=== PATIENT | female | born 1940 | race Caucasian/White ===

== ENCOUNTER 2020-07-12 11:54 | Outpatient (CLI) | payer OTHER, SELFPAY ==
[2020-07-12 12:16] LABS: Basophils Percent Auto 0.4 % (0.2-1.2); Eosinophils Percent Auto 0.6 % (0-4.4); Hemoglobin 15.2 g/dL (12.0-15.0); Immature Granulocyte Absolute 0.01 K/mm3 (0.00-0.031); Immature Granulocyte Percent A 0.2 % (0-0.5); Lymphocytes Absolute Auto 0.94 K/mm3 (0.9-3.2); Lymphocytes Percent Auto 20.2 % (18.3-44.2); Mean Corpuscular HGB Conc 33.8 g/dl (32-36); Mean Corpuscular Hemoglobin 30.3 pg (26-34); Mean Corpuscular Volume 89.6 fl (80-100); Mean Platelet Volume 9.9 fl (7.4-10.4); Monocytes Absolute Auto 0.3 K/mm3 (0.1-0.6); Monocytes Percent Auto 5.6 % (2.6-8.5); Neutrophils Absolute Auto 3.4 K/mm3 (1.3-6.7); Platelet Count Result 164 k/mm3 (150-375); Red Blood Count 5.02 M/mm3 (4.2-5.4); Red Cell Distribution Width 11.9 % (11.5-14.5); White Blood Count 4.7 K/mm3 (4.5-10.0)
[2020-07-12 12:29] LABS: Alanine Aminotransferase 18 U/L (4-35); Albumin Level 4.2 g/dL (3.5-5.1); Alkaline Phosphatase 47 U/L (38-126); Anion Gap 11 mmol/L (8-16); Aspartate Amino Transferase 29 U/L (14-36); Bilirubin,Total 0.6 mg/dL (0.2-1.3); Blood Urea Nitrogen 16 mg/dL (7-17); Calcium 9.2 mg/dL (8.4-10.2); Carbon Dioxide 22 mmol/L (22-30); Chloride 106 mmol/L (98-107); Estimated Glomerular Filt Rate > 60; Glucose 99 mg/dL (65-105); Potassium 3.9 mmol/L (3.4-5.0); Sodium 139 mmol/L (137-145)
[2020-07-12 13:16] LABS: Creatinine Urine 66.4 mg/dL
[2020-07-12 13:21] LABS: MALB Creatinine Ratio 9.6 mg/g (0-30); Microalbumin Urine Random 6.4 mg/L (0-16.7)
[2020-07-12 13:29] LABS: Vitamin D 25 Hydroxy 34.7 ng/mL
== END 2020-07-12 11:55 | disposition home or self-care (01) ==
PROVIDERS: PCP Internal Medicine; Visit Provider Internal Medicine
DX: R60.0 Localized edema (principal); E55.9 Vitamin D deficiency, unspecified
CPT/HCPCS: 36415; 80053; 82043; 82306; 84443; 85025

== ENCOUNTER 2021-01-16 14:28 | Emergency (ER) | payer OTHER, SELFPAY ==
--- NOTE | ~2021-01-16 | XR_ITS ---
XR shoulder RT min 2V DATE: 01/16/2021 15:31 INDICATION: Right shoulder pain following a fall today TECHNIQUE: 3 views COMPARISON: None FINDINGS: There is a comminuted fracture of the proximal right humerus including anteriorly displaced transverse surgical neck fracture, fracture through the greater tuberosity. Normal alignment at the clavicular joint. There is widening of the right glenohumeral joint space. Diffuse osteopenia. IMPRESSION: Comminuted fracture of the proximal right humerus including surgical neck and greater tub erosity fractures Reviewed, dictated and finalized at location A. USION SUPERVISOR IMPRESSION: Comminuted fracture of the proximal right humerus including surgica l neck and greater tuberosity fractures
--- NOTE | ~2021-01-16 | XR_ITS ---
XR knee LT 3V DATE: 01/16/2021 18:12 INDICATION: Fall today. Left anterior knee pain. TECHNIQUE: 3 views including crosstable lateral COMPARISON: None FINDINGS: There is tricompartment osteoarthritis with periarticular spurring. Medial and lateral comp artment joint spaces are relatively preserved. No fracture or dislocation or joint effusion. No periosteal reaction or bone destruction. No radiopaq ue intra-articular loose body or chondrocalcinosis. IMPRESSION: Tricompartment osteoarthritic arthritis No fracture or dislocation or joint effusion is detected Reviewed, dictated and finalized at location A. ERBOARD SETTER
--- NOTE | ~2021-01-16 | XR_ITS ---
XR finger 1st LT min 2V DATE: 01/16/2021 18:09 INDICATION: Fall. Pain and abrasion of distal phalanx of first digit TECHNIQUE: 3 views COMPARISON: None FINDINGS: There is osteopenia. There is prominent osteoarthritic change at the triscaphe joint. There is osteoarthritic change at the first metacarpophalangeal joint. No fracture or dislocation, periosteal reaction or bone destruction of the left first digit. No radio paque soft tissue foreign body or subcutaneous emphysema of the first digit. IMPRESSION: Osteopenia Osteoarthritis particularly at the triscaphe joint, also the first metacarpophalangeal joint No fracture or dislocation of the left first digit Reviewed, dictated and finalized at location A. ASOUND SPEC IMPRESSION: Osteopenia Osteoarthritis particularly at the triscaphe joint, also the first metacarpopha langeal joint No fracture or dislocation of the left first digit
--- NOTE | ~2021-01-16 | XR_ITS ---
XR finger 1st RT min 2V DATE: 01/16/2021 18:09 INDICATION: Fall today. Pain and abrasion at the distal phalanx TECHNIQUE: 3 views COMPARISON: None FINDINGS: Diffuse osteopenia. There is a benign cyst of the waist of the navicular bone. No fracture or dislocation, periosteal reaction or bone destruction of the first digit. Small linear distal soft tissue foreign body is not excluded. Recommend clinical correlation. IMPRESSION: Cannot exclude small linear distal soft tissue foreign body; recommend clinical correlati on No fracture or dislocation Reviewed, dictated and finalized at location A. ER/WAITRESS COCKTAIL LOUNGE IMPRESSION: Cannot exclude small linear distal soft tissue foreign body; recomm end clinical correlation No fracture or dislocation
[2021-01-16 14:32] VITALS: BP 134/60; PULSE 80; RESP 20; TEMP 36.3; O2SAT 99
[2021-01-16 16:00] VITALS: BP 131/69; PULSE 81; RESP 15; O2SAT 100
[2021-01-16 17:00] VITALS: BP 128/85; PULSE 89; RESP 15; O2SAT 100
--- NOTE | 2021-01-16 17:27 | ED.FALL ---
HPI - Fall General Chief Complaint: Fall Stated Complaint: fall, shoulder pain Time Seen by Provider: 01/16/21 16:22 Source: patient and family Mode of arrival: ambulatory Limitations: no limitations History of Present Illness HPI Narrative: Patient tripped on the sidewalk and fell, complaining of right shoulder, left knee and sounds.. Denies head or neck injury or other injuries. Patient denies taking any blood thinner. Patient denies any fever, chills, nausea, vomiting, diarrhea, chest pain, shortness of breath or back pain. Related Data Home Medications Medication Instructions Recorded Confirmed cholecalciferol (vitamin D3) 25 25 mcg PO DAILY 07/12/20 12/19/20 mcg (1,000 unit) capsule mecobalamin (vitamin B12) 1,000 1,000 mcg PO DAILY 07/12/20 12/19/20 mcg chewable tablet Allergies Allergy/AdvReac Type Severity Reaction Status Date / Time Penicillins Allergy Intermediate Hives / Verified 01/16/21 14:35 Red Face Review of Systems Review of Systems: Narrative: CONSTITUTIONAL: Denies fever, chills, or sweats. EYES: Denies visual changes, redness, or discharge. ENT: Denies rhinorrhea, congestion, sore throat, or otalgia. CARDIOVASCULAR: Denies chest pain, palpitations, or edema. RESPIRATORY: Denies cough or dyspnea. GASTROINTESTINAL: Denies abdominal pain, nausea, vomiting, or diarrhea. GENITOURINARY: Denies dysuria or hematuria. SKIN: Denies rash or itching. MUSCULOSKELETAL: Denies back pain, joint pain, or myalgia. NEUROLOGIC: Denies headache, numbness, or weakness. PSYCHIATRIC: Denies anxiety or depression. PMFSH Family History Family History Father Carcinoma of colon Sibling Colon polyp Social History Social History Smoking status: Never smoker Second hand tobacco smoke exposure: No Alcohol intake: current Exam Narrative: Exam Narrative: General appearance: Well-developed, well-nourished Skin: Normal color Head: Normocephalic, nontraumatic Eyes: Clear conjunctiva ENT: Oropharynx normal, ears normal, nose normal Neck: Supple, nontender Chest and respiratory: Airway patent, no respiratory distress, no accessory muscle use Heart: Regular rate/rhythm Abdomen: Soft, nontender, no organomegaly, quiet bowel sounds Vascular: Normal peripheral pulses, normal capillary refill. Musculoskeletal: Right shoulder shows diffuse tenderness, severe limited range of motion,obvious deformity Neurologic: Alert and oriented ?3, THEATRICAL DRESSER is normal as tested, no gross motor deficit Course Course Emergency Course: Stable PERSONAL DEVELOPMENT COACH/PA Physician Supervision Right shoulder fracture, contusion, sprain, strain Vital Signs Vital signs: Vital Signs Temperature 36.3 C L 01/16/21 14:32 Pulse Rate 80 01/16/21 14:32 Respiratory Rate 20 01/16/21 14:32 Blood Pressure 134/60 01/16/21 14:32 Pulse Oximetry 99 01/16/21 14:32 Temperature 36.3 C L 01/16/21 14:32 Pulse Rate 80 01/16/21 14:32 Respiratory Rate 20 01/16/21 14:32 Blood Pressure 134/60 01/16/21 14:32 Pulse Oximetry 99 01/16/21 14:32 MDM - Fall MDM Narrative Medical decision making narrative: Patient had a fall with right shoulder pain. X-ray of the right shoulder, left knee, and fingers bilaterally ordered. Further plan to follow Differential Diagnosis Differential diagnosis: Likely dislocation of shoulder region, compression fracture and other (Contusion, sprain/strain) Critical Care Time Critical Care Time Critical Care Time: Yes Total Critical Care Time: 20 Discharge Plan Discharge Clinical Impression: Fall Qualifiers: Encounter type:
[2021-01-16] MEDS: MORPHINE SULFATE INJ (*CRX) 10 MG/ML AMP IM (17:39)
[2021-01-16] MEDS: ONDANSETRON HCL ODT 4 MG TABLET PO (17:40)
[2021-01-16 19:01] VITALS: BP 133/78; PULSE 78; RESP 15; O2SAT 100
== END 2021-01-16 19:50 | disposition home or self-care (01) ==
PROVIDERS: Emergency Provider Emergency Medicine; PCP Internal Medicine
DX: S42.211A Unspecified displaced fracture of surgical neck of right humerus, initial encounter for closed fracture (principal); S42.251A Displaced fracture of greater tuberosity of right humerus, initial encounter for closed fracture; R93.6 Abnormal findings on diagnostic imaging of limbs; M85.842 Other specified disorders of bone density and structure, left hand; M18.9 Osteoarthritis of first carpometacarpal joint, unspecified; M19.032 Primary osteoarthritis, left wrist; M17.12 Unilateral primary osteoarthritis, left knee; W01.0XXA Fall on same level from slipping, tripping and stumbling without subsequent striking against object, initial encounter
CPT/HCPCS: 73030; 73140; 73562; 96372; 99284; A4565; A9270; J2270

== ENCOUNTER 2021-01-19 17:47 | Emergency (ER) | payer OTHER, SELFPAY ==
[2021-01-19 19:05] VITALS: BP 138/77; PULSE 114; RESP 16; TEMP 36.5; O2SAT 97
--- NOTE | 2021-01-19 19:10 | ECG_ITS ---
Measurements Intervals [place] Rate: 94 P: 67 AL: 156 QRS: 25 QRSD: 84 T: 32 QT: 330 QTc: 413 Interpretive Statements SINUS RHYTHM BASELINE ARTIFACT- V4 NORMAL ECG Electronically Signed On 01-20-2021 7:28:20 FACILITIES SUPERVISOR by Issa Carrera D.O.
[2021-01-19 19:25] LABS: Basophils Percent Auto 0.3 % (0.2-1.2); Eosinophils Percent Auto 0.5 % (0-4.4); Hematocrit 42.1 % (37.0-47.0); Immature Granulocyte Absolute 0.02 K/mm3 (0.00-0.031); Immature Granulocyte Percent A 0.3 % (0-0.5); Lymphocytes Absolute Auto 0.95 K/mm3 (0.9-3.2); Lymphocytes Percent Auto 16.4 % (18.3-44.2); Mean Corpuscular HGB Conc 33.3 g/dl (32-36); Mean Corpuscular Hemoglobin 30.8 pg (26-34); Mean Corpuscular Volume 92.5 fl (80-100); Mean Platelet Volume 9.9 fl (7.4-10.4); Monocytes Absolute Auto 0.5 K/mm3 (0.1-0.6); Neutrophils Absolute Auto 4.3 K/mm3 (1.3-6.7); Neutrophils Percent Auto 73.5 % (45.5-73.1); Platelet Count Result 157 k/mm3 (150-375); Red Blood Count 4.55 M/mm3 (4.2-5.4); Red Cell Distribution Width 12.2 % (11.5-14.5); White Blood Count 5.8 K/mm3 (4.5-10.0)
[2021-01-19 19:46] LABS: Alanine Aminotransferase 25 U/L (4-35); Albumin Level 3.9 g/dL (3.5-5.1); Alkaline Phosphatase 57 U/L (38-126); Anion Gap 4 mmol/L (8-16); Aspartate Amino Transferase 35 U/L (14-36); Bilirubin,Total 0.6 mg/dL (0.2-1.3); Blood Urea Nitrogen 15 mg/dL (7-17); Calcium 9.1 mg/dL (8.4-10.2); Carbon Dioxide 30 mmol/L (22-30); Chloride 106 mmol/L (98-107); Estimated CRCL calculation 63 ml/min; Estimated Glomerular Filt Rate > 60; Glucose 101 mg/dL (65-105); Potassium 3.4 mmol/L (3.4-5.0); Sodium 140 mmol/L (137-145)
[2021-01-19 21:03] VITALS: BP 147/88; PULSE 95; RESP 20; O2SAT 96
--- NOTE | 2021-01-19 21:20 | ED.GENADULT ---
HPI - General Adult General Chief complaint: Weakness Stated complaint: shoulder fx/cant take care of herself Time Seen by Provider: 01/19/21 21:00 History of Present Illness HPI narrative: Patient is 80-year-old female who presents to the ER with complaint of weakness. Patient suffered a fracture to her right humeral head several days ago. Since then she reports that she has been unable to physically walk because it hurts too much to move around. She can perform straight leg raises within the bed but cannot bring herself to go from sitting to standing due to perceived weakness and pain. She has been taking her medication and she has been wearing a sling. She sleeps in a recliner. Patient's daughter reports that she is having to perform 100% lift assist for the patient and has even been feeding her and helping her with using the toilet. She is made attempts to get her into a rehabilitation facility but that has not worked out yet. Related Data Home Medications Medication Instructions Recorded Confirmed cholecalciferol (vitamin D3) 25 25 mcg PO DAILY 07/12/20 12/19/20 mcg (1,000 unit) capsule mecobalamin (vitamin B12) 1,000 1,000 mcg PO DAILY 07/12/20 12/19/20 mcg chewable tablet Allergies Allergy/AdvReac Type Severity Reaction Status Date / Time Penicillins Allergy Intermediate Hives / Verified 01/19/21 21:01 Red Face Review of Systems Review of Systems: All systems reviewed & are unremarkable except as noted in HPI and below Constitutional: Constitutional: Denies chills, Denies fever(s) and Reports weakness Musculoskeletal: Musculoskeletal: Reports arthralgias and Reports joint swelling Neurologic: Denies focal weakness and Denies numbness PMFSH Surgical History Surgical History (Updated 01/19/21 @ 21:26 by Destin Hogan MD) History of cholecystectomy History of hysterectomy History of tonsillectomy Family History Family History Father Carcinoma of colon Sibling Colon polyp Social History Social History Smoking status: Never smoker Second hand tobacco smoke exposure: No Alcohol intake: current Exam Narrative: Exam Narrative: GENERAL: Well-appearing, well-nourished, and in no acute distress. HEAD: Normocephalic, atraumatic. CHEST: Clear to auscultation. No respiratory distress. HEART: Regular rate and rhythm. Normal peripheral pulses. EXTREMITIES: No palpation right shoulder where patient has a fracture. Arm placed in sling. Patient with normal straight leg raise of bilateral lower extremities and able to move left upper extremity without issue willing in bed. SKIN: Warm, dry, no rash. NEURO: Alert and oriented x3. PSYCH: Normal mood and affect. Course Course Emergency Course: Patient has been up and walking around the ER under her own power while holding some ice hand with her left arm. She was very steady. She is able to get out of bed and over to the commode with her own power. Discussed that she will not be admitted. We will start on oral Keflex in case she has UTI. We will also give her some Ativan for home because it sounds like she becomes very anxious and starts to shake. She has not been taking any pain medication due to nervousness as well. Discussed that they should not mix these medications. Discussed that her pain is not adequately controlled because she does not wear her sling properly with her elbow situated in the corner of the sling. Additionally she is not taking her pain medication which will not control her pain. She has verbalized understanding of this. Discharge home. Vital Signs Vital signs: Vital Signs Temperature 97.7 F 01/19/21 19:05 Pulse Rate 114 H 01/19/21 19:05 Respiratory Rate 16 01/19/21 19:05 Blood Pressure 138/77 01/19/21 19:05 Pulse Oximetry 97 01/19/21 19:05 Temperature 97.7 F 01/19/21 19:05 Pulse Rate 94
[2021-01-19 21:41] VITALS: BP 147/87; PULSE 94; RESP 16; O2SAT 96
[2021-01-19] MEDS: SODIUM CHLORIDE 0.9% IV 1,000 ML 999 ML IV CONT (21:41)
[2021-01-19 23:17] LABS: Add Urine Microscopic? YES; Appearance Urine Clear (Clear); Bilirubin Urine Negative (Negative); Blood Urine Negative (Negative); Color Urine Yellow (Yellow); Glucose Urine UA Negative (Negative); Ketones Urine 1+ mg/dL (Negative); Leukocyte Esterase Ur 1+ LEU/UL (Negative); Mucus Urine Moderate /lpf; Nitrate Urine Negative (Negative); Protein Urine Negative (Negative); Specific Grav Ur 1.019 (1.001-1.035); Squamous Epithelial Cell Urine Few /hpf (Few); Urobilinogen Urine Negative mg/dL (<2.0); WBC Urine 51-75 /hpf
[2021-01-20 00:14] VITALS: BP 138/88; PULSE 90; RESP 16; O2SAT 99
[2021-01-20] MEDS: CEPHALEXIN 500 MG CAPSULE PO (00:14)
== END 2021-01-20 00:15 | disposition home or self-care (01) ==
PROVIDERS: Emergency Medicine; Emergency Provider Emergency Medicine; PCP Internal Medicine
DX: N39.0 Urinary tract infection, site not specified (principal); M25.511 Pain in right shoulder
CPT/HCPCS: 36415; 80053; 81001; 85025; 87086; 93005; 96360; 99283; A9270; J7030

== ENCOUNTER → 2021-01-23 00:57 | Outpatient (CLI) | payer OTHER, SELFPAY ==
[2021-01-23 19:08] LABS: SARS-CoV-2 RNA PCR Negative
== END ==
PROVIDERS: PCP Internal Medicine; Visit Provider Orthopaedic Surgery
DX: Z01.812 Encounter for preprocedural laboratory examination (principal); Z20.822 Contact with and (suspected) exposure to COVID-19
CPT/HCPCS: C9803; U0003; U0005

== ENCOUNTER 2021-01-26 16:47 | Inpatient (IN) | payer OTHER, SELFPAY ==
[2021-01-22 15:08] VITALS: BMI 28.1
[2021-01-22 15:50] VITALS: BP 131/57; PULSE 79; RESP 16; TEMP 36.9; O2SAT 98
[2021-01-26] VITALS (14 sets, daily range): BP systolic 115–134; BP diastolic 46–70; PULSE 78–105; RESP 12–24; TEMP 35.8–36.7; O2SAT 92–100; BMI 28.0
--- NOTE | ~2021-01-26 | XR_ITS ---
EXAMINATION: XR surgery orthopedic DATE: 01/26/2021 14:49 INDICATION: ORIF right humerus fracture. TECHNIQUE: 4 fluoroscopic spot images of the proximal right humerus were obtained during procedure pe rformed by Dr. Zheng. Radiologist was not present for the imaging or procedure. The amount of fl uoroscopy time used during this procedure was 1.6 minutes. COMPARISON: 01/16/2021 FINDINGS: Interval open reduction and internal fixation with lateral plate and screws of the previous noted com minuted two-part fracture of the proximal right humerus. Alignment of the fixed fracture appears near -anatomic. The region of the glenoid is obscured. IMPRESSION: 1. Near-anatomic alignment post open reduction internal fixation of a comminuted two-part fracture of the proximal right humerus. See procedure note for further detail. Reviewed, dictated and finalized at location B. GER HI IMPRESSION: 1. Near-anatomic alignment post open reduction internal fixation of a comminute d two-part fracture of the proximal right humerus. See procedure note for furth er detail.
--- NOTE | 2021-01-26 06:51 | WPDHPUPDATE1 ---
History and Physical Update Update Date/Time: 01/26/21 06:51 History and Physical has been reviewed, including an updated exam of the patient. There are NO changes in the patient's condition. Risks, benefits, and alternatives have been discussed and questions answered. Patient agrees to proceed with procedure.
[2021-01-26] MEDS: LACTATED RINGERS 1,000 ML 30 ML IV CONT ×2 (11:00→14:58)
--- NOTE | 2021-01-26 11:14 | PCCCNOTE ---
Patient was here in the ED on 01/16 and 01/20 (shoulder fracture) and is here today for surgery on same. Daughter/POA Chelo Hatch [phone] would prefer [facility] as custodial upon discharge from the hospital as she does not feel she is able to care for patient at home during her recovery from surgery.
--- NOTE | 2021-01-26 11:36 | WPDANESEPPF ---
Anes - Initial Pre Proc Eval Procedure: Operation Date: 01/26/21 12:30 Proposed Procedures p Open Reduction Internal Fixation Right Proximal Humerus Fracture - Flash Zheng MD Date/Time: 01/26/21 11:36 Surgeon: Flash Zheng MD Pre Op Diagnosis: right proximal humerus fx Patient Data Age: 80 Gender: F Height: 5 ft 3 in Weight: 72.1 kg Last Vital Signs Temp 36.9 C 01/22/21 15:50 Pulse 79 01/22/21 15:50 Resp 16 01/22/21 15:50 BP 131/57 L 01/22/21 15:50 Pulse Ox 98 01/22/21 15:50 Allergies Allergy/AdvReac Type Severity Reaction Status Date / Time Penicillins Allergy Intermediate Hives / Verified 01/22/21 15:09 SWELLING IN Face Home Medications Medication Instructions Recorded Confirmed Type cholecalciferol (vitamin D3) 25 25 mcg PO DAILY 07/12/20 01/22/21 History mcg (1,000 unit) capsule mecobalamin (vitamin B12) 1,000 1,000 mcg PO DAILY 07/12/20 01/22/21 History mcg chewable tablet hydrocodone-acetaminophen 1 tablet PO Q6H PRN #20 tablet 01/17/21 01/22/21 Rx cephalexin 500 mg PO Q12H #10 cap 01/20/21 01/22/21 Rx lorazepam [Ativan] 0.5 mg PO PRN PRN 01/22/21 01/22/21 History Patient hx anesthesia problems: none Family hx anesthesia problems: none PMFSH Past Medical History Medical History Annual visit for general adult medical examination without abnormal findings Encounter for screening colonoscopy Hypernatremia Occasional tremors Overweight (BMI 25.0-29.9) Surgical History Surgical History History of cholecystectomy History of hysterectomy History of tonsillectomy Family History Family History Father Carcinoma of colon Sibling Colon polyp Social History Social History Smoking status: Never smoker Second hand tobacco smoke exposure: No Alcohol intake: current Living arrangements: with family Spiritual care concerns: No Anes - Eval Final PreProcedure Day of Procedure 01/26/21 11:36 Patient weight: overweight Heart: regular rate and rhythm Lungs: clear to auscultation Airway: Mallampati scale class II Neurological: alert and oriented ASA classification: III Emergent: no Anesthetic plan: proceed Anesthesia type and monitoring: general ETT and standard monitoring Informed Consent: The patient's anesthetic plan and its attendant risks and benefits were discussed with the patient/family/POA. Questions were solicited and answers provided to the satisfaction of the patient/family/POA.
[2021-01-26] MEDS: fentaNYL CITRATE INJ (*CRX) 100 MCG/2 ML VIAL 25 MCG IV PUSH (11:55)
[2021-01-26] MEDS: ACETAMINOPHEN 500 MG TABLET 1000 MG PO (11:55)
[2021-01-26] MEDS: KETOROLAC 15 MG/ML VIAL (*BKC) IV PUSH (11:55)
[2021-01-26] MEDS: CLINDAMYCIN 900 MG/D5W 50 ML 900 MG/50 ML PIGGYBACK 50 MG IVPB (12:08)
[2021-01-26] MEDS: BUPIVACAINE/EPINEPHRINE 0.5% 30 ML VIAL INFILTRATE (13:12)
--- NOTE | 2021-01-26 15:15 | P.OP_ITS ---
Procedure Note - Detailed Date of procedure: 01/26/21 Pre-op diagnosis: right proximal humerus fx Post-op diagnosis: same Procedure performed: Open reduction and internal fixation right proximal humerus surgical neck fracture. Three-part fracture with greater tuberosity involvement. Description of procedure: The fracture was highly unstable. Satisfactory closed reduction could not be obtained. Open reduction was elected. Bone quality was reasonable though moderately osteoporotic. Fracture was shortened slightly but good apposition of the bone was achieved. There was mild displacement of the posterior tuberosity. This was reduced with sutures back to the plate. Implants: [employer] proximal humeral locking plate. Anesthesia: GLMA Surgeon: Flash Zheng MD Light Rail Transit Operator: Nikki Bocanegra PA-C Estimated blood loss (mL): 200 Complications: No immediate complications Condition: stable Disposition: PACU Findings: Physician preschool assistant, Nikki Bocanegra PA-C, required for surgery; including patient positioning, draping, maintaining fracture reduction during manipulation and provisional fixation, wound closure, and dressing and sling placement. Preoperative antibiotics were given. A general anesthetic was administered. The patient was carefully placed in the beach chair position. The head and neck were carefully supported. The contralateral arm was padded. The shoulder was prepped and draped in usual sterile fashion and the articulating arm crockett was used. A longitudinal incision was created over the anterior shoulder. The deltopectoral interval was dissected. The fracture was identified. The biceps tendon was used for orientation. Fracture was cleared of debris and irrigated. Biplanar fluoroscopy was used throughout the procedure to confirm anatomic reduction and appropriate placement of all implants. Reduction was performed with a combination of forceps and K-wires. The plate was fixed and the central wire was used to confirm appropriate placement. A compression was screw was placed in the dynamic hole. The proximal locking screws and pegs were placed. Careful attention was paid to the length of the screws to avoid penetration. Shaft locking screws were then placed. Supplemental suture fixation was placed in the rotator cuff. The sutures were tied through the plate. The wound was irrigated and closed with interrupted 1. Vicryl suture followed by 0 strata fix, 2 0 strata fix and Steri-Strips. A sterile dressing was applied. The patient was extubated and brought to the recovery room in stable condition. There were no complications.
--- NOTE | 2021-01-26 16:13 | SUR.PHASEI ---
[id number] sbar faxed floor notified
--- NOTE | 2021-01-26 17:22 | ADMGEN ---
This patient, Love Vaughan, was admitted to Medical Room 253-01. Patient/family oriented to hospital policies and general routines including ID bracelet, bed and alarms, visiting hours, pain management, procedures, bathroom and other care routines, personal items, smoking policy, room service/diet, and visiting hours. Information on how to activate the Rapid Response Team has been discussed. Patient/Family are encouraged to report perceived risks to care and to ask questions if they do not understand what they are told or what they should do.
[2021-01-26] MEDS: DOCUSATE SODIUM 100 MG CAPSULE PO (17:58)
[2021-01-26] MEDS: SODIUM CHLORIDE 0.9% IV 1,000 ML 125 ML IV CONT (17:58)
--- NOTE | 2021-01-26 18:17 | PCCCNOTE ---
Multiple phone calls from daughter/POA Chelo Hatch [phone] regarding their choice of [facility] for rehab upon discharge. Clinicals and face sheet sent to [facility] as a courtesy to Chelo and as a heads-up to [facility]
[2021-01-26] MEDS: CLINDAMYCIN 600 MG/NS 50 ML 600 MG/50 ML PIGGYBACK 100 MG IVPB (20:44)
[2021-01-26] MEDS: ASPIRIN 325 MG ENTERIC TABLET PO (20:45)
[2021-01-26] MEDS: oxyCODONE HCL (*CRX) 5 MG TAB IR PO (23:05)
[2021-01-27 01:09] VITALS: BP 112/52; PULSE 80; RESP 18; TEMP 36.4; O2SAT 96
[2021-01-27] MEDS: SODIUM CHLORIDE 0.9% IV 1,000 ML 125 ML IV CONT (02:44)
[2021-01-27] MEDS: CLINDAMYCIN 600 MG/NS 50 ML 600 MG/50 ML PIGGYBACK 100 MG IVPB ×2 (03:24→11:23)
[2021-01-27] MEDS: oxyCODONE HCL (*CRX) 5 MG TAB IR PO ×5 (05:17→23:34)
[2021-01-27 05:36] VITALS: BP 121/58; PULSE 88; RESP 18; TEMP 36.4; O2SAT 92
[2021-01-27 05:58] LABS: Basophils Percent Auto 0.2 % (0.2-1.2); Eosinophils Percent Auto 0.2 % (0-4.4); Hematocrit 31.4 % (37.0-47.0); Hemoglobin 10.1 g/dL (12.0-15.0); Immature Granulocyte Absolute 0.03 K/mm3 (0.00-0.031); Immature Granulocyte Percent A 0.5 % (0-0.5); Lymphocytes Absolute Auto 0.77 K/mm3 (0.9-3.2); Lymphocytes Percent Auto 11.9 % (18.3-44.2); Mean Corpuscular HGB Conc 32.2 g/dl (32-36); Mean Corpuscular Hemoglobin 30.1 pg (26-34); Mean Corpuscular Volume 93.5 fl (80-100); Mean Platelet Volume 9.7 fl (7.4-10.4); Monocytes Absolute Auto 0.6 K/mm3 (0.1-0.6); Monocytes Percent Auto 8.5 % (2.6-8.5); Neutrophils Absolute Auto 5.1 K/mm3 (1.3-6.7); Neutrophils Percent Auto 78.7 % (45.5-73.1); Platelet Count Result 146 k/mm3 (150-375); Red Blood Count 3.36 M/mm3 (4.2-5.4); Red Cell Distribution Width 12.2 % (11.5-14.5); White Blood Count 6.5 K/mm3 (4.5-10.0)
[2021-01-27 06:09] LABS: Anion Gap 1 mmol/L (8-16); Blood Urea Nitrogen 14 mg/dL (7-17); Calcium 7.8 mg/dL (8.4-10.2); Carbon Dioxide 29 mmol/L (22-30); Chloride 107 mmol/L (98-107); Estimated CRCL calculation 61 ml/min; Estimated Glomerular Filt Rate > 60; Glucose 101 mg/dL (65-105); Potassium 3.9 mmol/L (3.4-5.0); Sodium 137 mmol/L (137-145)
[2021-01-27] MEDS: DOCUSATE SODIUM 100 MG CAPSULE PO ×2 (08:40→16:51)
[2021-01-27] MEDS: CHOLECALCIFEROL 1,000 UNITS TABLET 1000 UNITS PO (08:40)
[2021-01-27] MEDS: ASPIRIN 325 MG ENTERIC TABLET PO ×2 (08:40→20:30)
[2021-01-27] MEDS: CYANOCOBALAMIN 1,000 MCG TABLET 1000 MCG PO (08:40)
--- NOTE | 2021-01-27 10:30 | WPDANESPN ---
Anes - Prog Note Post-Op Date/Time: 01/27/21 10:30 Cardiovascular status: normal Respiratory status: normal Airway patency: baseline Mental status: baseline Post-Op hydration status: normal Vital Signs: Last Vital Signs Temp 36.4 C 01/27/21 05:36 Pulse 88 01/27/21 05:36 Resp 18 01/27/21 05:36 BP 121/58 L 01/27/21 05:36 Pulse Ox 92 01/27/21 05:36 Pain Score (VAS): 12/03 I/O: Intake & Output 01/26/21 01/27/21 01/27/21 23:59 07:59 15:59 Intake Total 550 1850 240 Output Total 900 Balance 550 950 240 Laboratory Tests 01/27/21 05:38 01/27/21 05:38 01/27/21 01/27/21 05:38 05:38 WBC 6.5 RBC 3.36 L Hgb 10.1 L D Hct 31.4 L MCV 93.5 MCH 30.1 MCHC 32.2 RDW 12.2 Plt Count 146 L MPV 9.7 Immature Gran % (Auto) 0.5 Neut % (Auto) 78.7 H Lymph % (Auto) 11.9 L [place] % (Auto) 8.5 Eos % (Auto) 0.2 Baso % (Auto) 0.2 Lymph # (Auto) 0.77 L [place] # (Auto) 0.6 Eos # (Auto) 0.0 Baso # (Auto) 0.0 Abs Immat Gran (auto) 0.03 Absolute Neuts (auto) 5.1 Absolute Nucleated RBC 0.0 Nucleated RBC % 0.0 Sodium 137 Potassium 3.9 Chloride 107 Carbon Dioxide 29 Anion Gap 1 L BUN 14 Creatinine 0.60 L Estim Creat Clear Calc 61 Estimated GFR > 60 Glucose 101 Calcium 7.8 L Post-procedural complaints: none Patient Feedback: Patient satisfied with anesthetic care.
[2021-01-27 10:32] VITALS: BP 120/54; PULSE 86; RESP 18; TEMP 36.4; O2SAT 94
--- NOTE | 2021-01-27 13:37 | PM.PNORT ---
Progress Note: A&P Assessment and Plan (1) Fracture of surgical neck of right humerus: Code(s): S42.211A - Unspecified displaced fracture of surgical neck of right humerus, initial encounter for closed fracture Status: Acute Assessment and Plan: Edith 80-year-old female postop day 1 ORIF right proximal humerus surgical neck fracture. Three-part fracture with greater tuberosity involvement. patient progressing well. Pain controlled with pain medications. I spoke with the patient's daughter who was in the room. She stated that the patient has issues with balance and is currently being worked up for possible Parkinson's. She is concerned for future falls. Patient's daughter states that she was supposed to be using a walker and has not been for the past few weeks. Discussed expectations postoperatively. Significant stiffness and some dysfunction is expected. Concern about additional fractures due to her frequent falls. She also has a significant tremor in her right hand worse with activity. Discussed postoperative restrictions and wound care. Patient and patient's daughter show good understanding. Patient will need to be discharged to residential / rehab. The family has indicated that [facility] is their 1st choice. Subjective Subjective Date/Time Seen: 01/27/21 13:37 Patient is 1 day postop ORIF right proximal humerus surgical neck fracture. Three-part fracture with greater tuberosity involvement. Patient's pain is controlled with pain medication. She is wearing immobilizer. She complains of pain with movement. No numbness or tingling in her fingers. Review of Systems Review of Systems: All systems reviewed & are unremarkable except as noted in HPI and below Exam Extrem: Other: Edith 80-year-old female. Resting comfortably in bed. No acute distress. Alert and oriented x3. Wearing immobilizer sling. Dressings dry and intact with no drainage. No erythema or warmth. Right arm has significant ecchymosis and swelling. Full range of motion at fingers and wrist. Patient refused to attempt to move elbow. Pulses palpable. Light touch sensation intact. Objective Data Vital Signs Vital Signs: Vital Signs - 24 hr 01/26/21 15:05 01/26/21 15:20 01/26/21 15:35 Temperature 96.9 F L Pulse Rate 86 81 98 Respiratory Rate 12 12 24 H Blood Pressure 120/46 L 123/64 127/70 Pulse Oximetry 99 100 94 01/26/21 15:50 01/26/21 16:05 01/26/21 16:20 Temperature Pulse Rate 92 90 86 Respiratory Rate 16 16 16 Blood Pressure 130/70 128/68 131/66 Pulse Oximetry 92 92 96 01/26/21 16:35 01/26/21 17:00 01/26/21 17:15 Temperature 96.5 F L 96.5 F L Pulse Rate 88 84 83 Respiratory Rate 16 16 16 Blood Pressure 130/67 122/58 L 124/56 L Pulse Oximetry 96 100 100 01/26/21 17:45 01/26/21 18:45 01/26/21 20:28 Temperature 96.5 F L 97.0 F L Pulse Rate 80 102 H Respiratory Rate 16 16 Blood Pressure 122/59 L 132/68 Pulse Oximetry 100 97 94 01/26/21 21:18 01/27/21 01:09 01/27/21 05:36 Temperature 97.5 F L 97.5 F L 97.6 F Pulse Rate 105 H 80 88 Respiratory Rate 18 18 18 Blood Pressure 115/52 L 112/52 L 121/58 L Pulse Oximetry 97 96 92 01/27/21 10:32 Temperature 97.5 F L Pulse Rate 86 Respiratory Rate 18 Blood Pressure 120/54 L Pulse Oximetry 94 Intake/Output Intake/Output: Intake & Output 01/24/21 01/25/21 01/26/21 01/27/21 23:59 23:59 23:59 23:59 Intake Total 600 2380 Output Total 900 Balance 600 1480 Meds/Results Medications: Active Medications Generic Name Dose Route Start Last Admin Trade Name Freq PRN Reason Stop Dose Admin Aspirin 325 mg 01/26/21 21:00 01/27/21 08:40 Aspirin 325 Mg Enteric Tablet PO 325 mg Q12HR JASMIN Administration Cyanocobalamin 1,000 mcg 01/27/21 09:00 01/27/21 08:40 Cyanocobalamin 1,000 Mcg Tablet PO 02/26/21 09:01 1,000 mcg DAILY JASMIN Administration Diphenhydramine HCl 25 mg 01/26/21 1
[2021-01-27 14:32] VITALS: BP 108/43; PULSE 88; RESP 18; TEMP 36.3; O2SAT 97
[2021-01-27 21:11] VITALS: BP 114/62; PULSE 104; RESP 18; TEMP 36.8; O2SAT 93
[2021-01-28] VITALS: BP 123/54; PULSE 86; RESP 18; TEMP 36.3; O2SAT 95
[2021-01-28 05:39] VITALS: BP 125/63; PULSE 94; RESP 18; TEMP 36.5; O2SAT 92
[2021-01-28] MEDS: DOCUSATE SODIUM 100 MG CAPSULE PO ×2 (09:39→17:06)
[2021-01-28] MEDS: ASPIRIN 325 MG ENTERIC TABLET PO ×2 (09:39→21:06)
[2021-01-28] MEDS: CYANOCOBALAMIN 1,000 MCG TABLET 1000 MCG PO (09:39)
[2021-01-28] MEDS: CHOLECALCIFEROL 1,000 UNITS TABLET 1000 UNITS PO (09:39)
[2021-01-28 10:05] VITALS: BP 127/72; PULSE 110; RESP 16; TEMP 36.6; O2SAT 96
[2021-01-28] MEDS: oxyCODONE HCL (*CRX) 5 MG TAB IR PO (12:52)
[2021-01-28 13:48] VITALS: BP 125/60; PULSE 100; RESP 16; TEMP 36.7; O2SAT 96
--- NOTE | 2021-01-28 14:01 | PM.PNORT ---
Progress Note: A&P Assessment and Plan (1) Fracture of surgical neck of right humerus: Code(s): S42.211A - Unspecified displaced fracture of surgical neck of right humerus, initial encounter for closed fracture Status: Acute (2) Generalized weakness: Code(s): R53.1 - Weakness Status: Acute Assessment and Plan: Postoperative day 2 status post ORIF of the right proximal humerus fracture. Significant ecchymosis and swelling within normal limits. I am very concerned about her home safety. She requires assistance. She has been weakening over the past months. Her tremor and reactions appeared to be potentially consistent with Parkinson's disease. That workup is in progress. She will need temporary placement while the shoulder heals. She has a significant fall risk. Subjective Subjective Date/Time Seen: 01/28/21 14:00 Interval history: Pain control is improved. Complains of swelling. Exam Narrative: Exam Narrative: Significant ecchymosis and swelling to the upper extremity. Wiggles fingers. Light touch sensation intact. Gentle motion well tolerated. Alert oriented x3. Unstable with gait. Requires assistance. Severe tremor. Objective Data Vital Signs Vital Signs: Vital Signs - 24 hr 01/28/21 10:05 01/28/21 13:48 01/28/21 18:31 Temperature 36.6 C 36.7 C 36.6 C Pulse Rate 110 H 100 114 H Respiratory Rate 16 16 16 Blood Pressure 127/72 125/60 134/63 Pulse Oximetry 96 96 98 01/28/21 21:51 01/29/21 00:52 01/29/21 04:00 Temperature 36.7 C 36.1 C L 36.1 C L Pulse Rate 105 H 100 87 Respiratory Rate 18 18 18 Blood Pressure 134/60 144/68 H 121/76 Pulse Oximetry 98 93 96 Intake/Output Intake/Output: Intake & Output 01/26/21 01/27/21 01/28/21 01/29/21 23:59 23:59 23:59 23:59 Intake Total 600 2620 1820 50 Output Total 900 225 Balance 600 1720 1595 50 Meds/Results Medications: Active Medications Generic Name Dose Route Start Last Admin Trade Name Freq PRN Reason Stop Dose Admin Aspirin 325 mg 01/26/21 21:00 01/28/21 21:06 Aspirin 325 Mg Enteric Tablet PO 325 mg Q12HR JASMIN Administration Cyanocobalamin 1,000 mcg 01/27/21 09:00 01/28/21 09:39 Cyanocobalamin 1,000 Mcg Tablet PO 02/26/21 09:01 1,000 mcg DAILY JASMIN Administration Diphenhydramine HCl 25 mg 01/26/21 16:47 Diphenhydramine Hcl Inj 50 Mg/Ml Vial IV PUSH Q6H PRN Itching Docusate Sodium 100 mg 01/26/21 17:00 01/28/21 17:06 Docusate Sodium 100 Mg Capsule PO 100 mg BID JASMIN Administration Lorazepam 0.5 mg 01/26/21 16:47 Lorazepam (*Crx) 0.5 Mg Tablet PO PRN PRN anxiety Naloxone HCl 0.1 mg 01/26/21 16:47 Naloxone Hcl 0.4 Mg/Ml Vial IV PUSH Q2M PRN Opiate Reversal Ondansetron HCl 4 mg 01/26/21 16:47 Ondansetron Inj 4 Mg/2 Ml Vial IV PUSH Q4H PRN Nausea And Vomiting Oxycodone HCl 5 mg 01/26/21 16:47 01/28/21 12:52 Oxycodone Hcl (*Crx) 5 Mg Tab Ir PO 5 mg Q4H PRN Administration Pain Rated 4-6 Oxycodone HCl 10 mg 01/26/21 16:47 Oxycodone Hcl (*Crx) 5 Mg Tab Ir PO Q4H PRN Pain Rated 7-10 Vitamin D 1,000 units 01/27/21 09:00 01/28/21 09:39 Cholecalciferol 1,000 Units Tablet PO 1,000 units DAILY JASMIN Administration Radiology Results: ITS Impressions Intraoperative X-Ray 01/26/21 14:58 IMPRESSION: 1. Near-anatomic alignment post open reduction internal fixation of a comminuted two-part fracture of the proximal right humerus. See procedure note for further detail.
[2021-01-28 18:31] VITALS: BP 134/63; PULSE 114; RESP 16; TEMP 36.6; O2SAT 98
[2021-01-28 21:51] VITALS: BP 134/60; PULSE 105; RESP 18; TEMP 36.7; O2SAT 98
[2021-01-29 00:52] VITALS: BP 144/68; PULSE 100; RESP 18; TEMP 36.1; O2SAT 93
[2021-01-29 04:00] VITALS: BP 121/76; PULSE 87; RESP 18; TEMP 36.1; O2SAT 96
[2021-01-29] MEDS: CHOLECALCIFEROL 1,000 UNITS TABLET 1000 UNITS PO (09:21)
[2021-01-29] MEDS: CYANOCOBALAMIN 1,000 MCG TABLET 1000 MCG PO (09:21)
[2021-01-29] MEDS: DOCUSATE SODIUM 100 MG CAPSULE PO ×2 (09:21→17:47)
[2021-01-29] MEDS: ASPIRIN 325 MG ENTERIC TABLET PO ×2 (09:21→20:18)
--- NOTE | 2021-01-29 11:09 | PCNSR ---
On 01/29/21, the student,Giovana Larry, provided care and completed [facility] documentation on this patient. I have reviewed the student's documentation and agree with the findings.
[2021-01-29 15:05] VITALS: BP 106/56; PULSE 81; RESP 20; TEMP 36.3; O2SAT 94
--- NOTE | 2021-01-29 16:37 | P.DS_ITS ---
DS: Admitting Diagnosis Admitting Diagnosis Admitting Diagnosis: Proximal humerus fracture DS: Discharge Diagnosis Discharge Diagnosis (1) Fracture of surgical neck of right humerus: Code(s): S42.211A - Unspecified displaced fracture of surgical neck of right humerus, initial encounter for closed fracture Status: Acute Assessment and Plan: Pleasant 80-year-old female postop day 3 ORIF right proximal humerus surgical neck fracture. Three-part fracture with greater tuberosity involvement. Patient progressing well with no complications. Pain controlled with pain medications. The patient has issues with balance and is currently being worked up for possible Parkinson's. Patient and her family are concerned for future falls. Discussed expectations postoperatively. Significant stiffness and some dysfunction is expected. Concern about additional fractures due to her frequent falls. She also has a significant tremor in her right hand worse with activity. Discussed postoperative restrictions and wound care. Patient and patient's daughter show good understanding. Patient will need an xray in 2 weeks and then follow up in the office. DS: Summary Hospital Course Reason for hospitalization: ORIF proximal humerus fracture Hospital Course: Patient tolerated procedure well. Has had initial PT/OT. No complications. Pain well managed. Status at Discharge Functional status at discharge: uses cane/walker Overall status at discharge: patient is progressing back to baseline Time Spent with Patient Time attestation: Total time spent providing and/or coordinating discharge services: Exam Narrative: Exam Narrative: Elderly Normal weight Female. Resting comfortably in chair. No acute distress. A&O x3. Wearing immobilizer sling. Dressing dry and intact with no drainage. Large amount of swelling and ecchymosis. No erythema. No hematoma. Full range of motion in elbow, wrist and fingers. Neurologic status intact. No varicosities. Distal pulses palpable. Discharge Plan Discharge Attending physician on discharge: Flash Zheng Discharging Clinician: Flash Zheng Patient Disposition: SNF Activity: may shower Diet: as tolerated Wound Care Instructions: other - see discharge instructions Discharge Instructions: * remove Mepilex dressing 7 days post op, remove steristrips 14 days post op. May shower * continue immobilizer sling (May remove wrist) * xray in 2 weeks Stand Alone Forms: General Discharge Information Discharge Medications: New oxycodone-acetaminophen 5-325 mg tablet 1 - 2 tablet PO Q4-6H MDD 6 PRN (Reason: pain) Qty: 30 RF: 0 aspirin 81 mg tablet,delayed release (DR/EC) 81 mg PO BID 14 Days Qty: 28 RF: 0 Continued mecobalamin (vitamin B12) 1,000 mcg tablet,chewable 1,000 mcg PO DAILY RF: 0 cholecalciferol (vitamin D3) [Vitamin D3] 25 mcg (1,000 unit) capsule 25 mcg PO DAILY RF: 0 lorazepam [Ativan] 0.5 mg tablet 0.5 mg PO PRN PRN (Reason: anxiety) RF: 0 Discontinued hydrocodone-acetaminophen 5-325 mg tablet 1 tablet PO Q6H PRN (Reason: pain) Qty: 20 RF: 0 Date of admission: 01/26/21 16:47 Primary Care Provider: Alden West Admitting Provider: Flash Zheng Attending physician on admission: Flash Zheng Condition: Stable
[2021-01-29 18:03] LABS: SARS-CoV-2 RNA PCR Negative
[2021-01-29 21:16] VITALS: BP 128/72; PULSE 87; RESP 20; TEMP 36.9; O2SAT 98
== END 2021-01-29 23:00 | DRG 494 ==
LOC: ANH2MED 16:56
PROVIDERS: Admitting Provider Orthopaedic Surgery; PCP Internal Medicine; Visit Provider Orthopaedic Surgery
PROC: 0PSC04Z Reposition Right Humeral Head with Internal Fixation Device, Open Approach (ICD-10-PCS; principal; 2021-01-26 12:30)
DX: S42.201A Unspecified fracture of upper end of right humerus, initial encounter for closed fracture (principal); S42.251A Displaced fracture of greater tuberosity of right humerus, initial encounter for closed fracture; Z20.822 Contact with and (suspected) exposure to COVID-19; M81.0 Age-related osteoporosis without current pathological fracture; Z90.49 Acquired absence of other specified parts of digestive tract; Z90.710 Acquired absence of both cervix and uterus
CPT/HCPCS: 36415; 80048; 85025; 97110; 97116; 97161; 97165; 97530; 97535; A9270; C9803; J0131; J0330; J1100; J1170; J1885; J2250; J2405; J2704; J3010; J7030; J7120; U0003; U0005

== ENCOUNTER → 2021-06-12 09:41 | Outpatient (CLI) | payer MEDICARE, SELFPAY ==
--- NOTE | ~2021-06-12 | CT_ITS ---
EXAMINATION: CT abdomen pelvis wo/w con DATE: 06/12/2021 11:49 INDICATION: Abdominal mass, swelling, mid epigastric pain TECHNIQUE: Computed tomography (CT) of the abdomen and pelvis was performed with 100 cc Omnipaque 350 intravenous contrast. Automated exposure control and iterative reconstruction technique were employe d. Exam dose: 702.45 mGy-cm total exam DLP. COMPARISON: None. FINDINGS: Bilateral mild dependent lower lobe atelectasis. Normal heart size. No pericardial or pleural effusion. Multiple gallstones are evident. No gallbladder wall thickening or pericholecystic fluid or fat stran ding is noted. No hepatic space-occupying mass lesion. No bile duct dilatation. Normal splenic size. No pancreatic m ass lesion, calcification or ductal dilatation. Normal morphology of the adrenal glands. 2.2 cm lower pole left renal cyst. 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 Subtle punctate lower pole right renal calculus is suggested. No ureteral calculus or hydroureteronephrosis. Normal caliber of the abdominal aorta. No intraperitoneal or retroperitoneal or pelvic mass lesion or adenopathy or ascites. No evidence of appendicitis is detected. No bowel obstruction or intraperitoneal free air. Degenerative changes of the lower thoracic and lumbar spine including grade 1 anterolisthesis at L3-4 , moderate degenerative disc disease at L1-2, L3-4 and L5-S1. 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 Reviewed, dictated and finalized at [facility]. 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
--- NOTE | ~2021-06-12 | MMUS_ITS ---
EXAMINATION: MM diagnostic swetha BI w lauren, US breast LT complete HISTORY: Palpable left breast abnormality TECHNIQUE: Additional 3-D tomosynthesis images of the breasts were performed and synthetic 2-D images were generated. CAD analysis was submitted and interpreted. High resolution complete left breast ult rasound was performed. COMPARISON: None BREAST PARENCHYMAL COMPOSITION: Breast composed of scattered areas of fibroglandular density FINDINGS: MAMMOGRAPHIC FINDINGS: There are no suspicious masses, calcifications or architectural distortion in either breast to sugges t malignancy. There is an inverted left nipple, by history is chronic. ULTRASOUND: Complete left breast ultrasound: At 1:00, 2 cm from the nipple there is a 4 mm cyst. No other mass id entified. No sonographic evidence for malignancy. IMPRESSION: 1. No evidence for malignancy in either breast. 2. Routine yearly screening mammogram and regular clinical breast examination are recommended. BI-RADS Category 2: Benign finding(s). Reviewed, dictated and finalized at location [facility]. IMPRESSION: 1. No evidence for malignancy in either breast. 2. Routine yearly screening mammogram and regular clinical breast examination a re recommended. BI-RADS Category 2: Benign finding(s).
[2021-06-12 11:12] LABS: Estimated Glomerular Filt Rate > 60
== END ==
PROVIDERS: PCP Nurse Practitioner Family; Visit Provider Nurse Practitioner Family
DX: N64.59 Other signs and symptoms in breast (principal); N28.1 Cyst of kidney, acquired; I70.8 Atherosclerosis of other arteries
CPT/HCPCS: 74178; 76641; 77062; 77066; G0279; Q9967

== ENCOUNTER 2021-09-03 08:12 | Outpatient (CLI) | payer MEDICARE, SELFPAY ==
--- NOTE | ~2021-09-03 | US_ITS ---
US arterial ankle brachial ind INDICATION: Arterial insufficiency TECHNIQUE: Segmental pressures and plethysmographic and Doppler waveforms of the brachial and lower e xtremity arteries were obtained. COMPARISON: None. FINDINGS: Right and left brachial artery pressures of 111 mm Hg and 118 mm Hg, respectively, are concordant (no rmal difference <= 30 mmHg). The right ankle-brachial index (BERNARD) is 1.23 (normal >= 0.9-1.0). The right great toe-brachial index (TBI) is 1.28 (normal >= 0.60). The left BERNARD is 1.25. The left TBI is 1.01. IMPRESSION: 1. Normal bilateral ankle and toe brachial indices. Reviewed, dictated and finalized at [facility].
== END 2021-09-03 08:13 | disposition home or self-care (01) ==
LOC: ANHIMG 08:16
PROVIDERS: PCP Nurse Practitioner Family; Visit Provider Surgery Vascular Surgery
DX: I73.9 Peripheral vascular disease, unspecified (principal)
CPT/HCPCS: 93922

== ENCOUNTER 2022-06-26 08:19 | Outpatient (CLI) | payer MEDICARE, SELFPAY ==
--- NOTE | ~2022-06-26 | US_ITS ---
EXAMINATION: US retroperitoneal duplex ltd DATE: 06/26/2022 10:00 INDICATION: Right renal artery aneurysm TECHNIQUE: Multiple grayscale, color Doppler, and pulsed Doppler images of the kidneys and renal yesica matilda were obtained. COMPARISON: CT abdomen and pelvis dated 06/12/2021 FINDINGS: The aorta peak systolic velocity is 129 cm/s. The right renal artery peak systolic velocity is 128 cm /s in the proximal segment, 119 cm/s in the mid segment, and 188 cm/s in the distal segment. The righ t renal artery aneurysm is not identified on the provided images. The left renal artery peak systolic velocity is 150 cm/s in the proximal segment, 180 cm/s in the mid segment, and 158 cm/s in the dista l segment. There is normal renal contour and echogenicity bilaterally. The right kidney measures 9.3 x 4.1 cm an d the left 11.8 x 5.4 cm. 2.4 cm anechoic cyst at the lower pole of the left kidney. There is no hydr onephrosis. Shadowing gallstones are seen in the partially visualized gallbladder. IMPRESSION: 1. Peak systolic velocities at the bilateral renal arteries. Borderline criteria for >50-60% stenosi s. 2. Right renal artery not identified on the provided images. Consider CT for further evaluation. 3. Cholelithiasis. Reviewed, dictated and finalized at [facility]. IMPRESSION: 1. Peak systolic velocities at the bilateral renal arteries. Borderline criter ia for >50-60% stenosis. 2. Right renal artery not identified on the provided images. Consider CT for fu rther evaluation. 3. Cholelithiasis.
== END 2022-06-26 08:20 | disposition home or self-care (01) ==
PROVIDERS: PCP Nurse Practitioner Family; Visit Provider Surgery Vascular Surgery
DX: I72.2 Aneurysm of renal artery (principal); K80.20 Calculus of gallbladder without cholecystitis without obstruction; N28.1 Cyst of kidney, acquired
CPT/HCPCS: 93976

== ENCOUNTER 2023-07-12 12:16 | Emergency (ER) | payer MEDICARE, SELFPAY ==
[2023-07-12 12:30] VITALS: BP 157/82; PULSE 74; RESP 18; TEMP 36.3; O2SAT 97
--- NOTE | 2023-07-12 12:46 | ED.EYEPROB ---
HPI - Eye Problem General Chief complaint: Eye Problems Stated complaint: Swollen/Red right eye Time Seen by Provider: 07/12/23 12:37 Source: patient and RN notes reviewed Mode of arrival: ambulatory Limitations: no limitations History of Present Illness HPI Narrative: Patient presents today complaining of redness and swelling to her right upper eyelid x2 days. She has been washing with warm water and applying warm compresses, which has helped improve her symptoms. Denies vision changes. Reports some yellow drainage. Related Data Home Medications Medication Instructions Recorded Confirmed cyanocobalamin (vitamin B-12) 1,000 mcg PO DAILY 03/23/21 07/12/23 1,000 mcg capsule acetaminophen 325 mg tablet 325 mg PO Q6H 07/04/21 07/12/23 (Tylenol) mirabegron 25 mg tablet,extended 25 mg PO DAILY 07/04/21 07/12/23 release 24 hr (Myrbetriq) Allergies Allergy/AdvReac Type Severity Reaction Status Date / Time Penicillins Allergy Intermediate Hives / Verified 07/12/23 12:27 SWELLING IN Face Review of Systems Review of Systems: CONSTITUTIONAL: Denies body aches, fever, chills, or sweats. EYES: Denies visual changes, redness. + right upper eyelid redness and swelling, right eye drainage ENT: Denies rhinorrhea, congestion, sore throat, or otalgia. CARDIOVASCULAR: Denies chest pain, palpitations, or edema. RESPIRATORY: Denies cough or dyspnea. GASTROINTESTINAL: Denies abdominal pain, nausea, vomiting, or diarrhea. GENITOURINARY: Denies dysuria or hematuria. SKIN: Denies rash, itching, or wounds. MUSCULOSKELETAL: Denies back pain, joint pain, or myalgia. NEUROLOGIC: Denies headache, numbness, tingling, or weakness. PSYCH: Denies depression or anxiety. [facility] Past Medical History Medical History Annual visit for general adult medical examination without abnormal findings Encounter for screening colonoscopy Hypernatremia Occasional tremors Overweight (BMI 25.0-29.9) Surgical History Surgical History H/O cataract extraction H/O hernia repair H/O shoulder surgery History of cholecystectomy History of hysterectomy History of tonsillectomy Family History Family History Father Carcinoma of colon Sibling Colon polyp Mother Melanoma Sibling COVID-19 Sibling Ovarian cancer Social History Social History Social History: former smoker Smoking status: Former smoker Second hand tobacco smoke exposure: No Alcohol intake: current Alcohol use details: occasionally Substance use: never Substance use type: does not use Living arrangements: with family Gender identity (if verbalized by the patient): Female Spiritual care concerns: No Comments At time of signature, I have reviewed and agree with nursing past medical, surgical, social and family history unless otherwise noted. Please see nursing chart for further information. There is no relevant family history pertinent to the presenting complaint Exam Narrative: GENERAL: Well-appearing, well-nourished, and in no acute distress. HEAD: Normocephalic, atraumatic. EYES: EOMI. PERRL. Conjunctivae normal bilaterally. Moderate redness and mild swelling to the right upper eyelid with obvious pustule. No active drainage. Left eye normal. ENT: Mucous membranes pink and moist. NECK: Normal AROM. CHEST: No respiratory distress. EXTREMITIES: Normal range of motion. No edema. SKIN: Warm, dry, no rash. Capillary refill normal. Normal skin turgor. NEURO: No focal deficits. Alert and oriented x3. Gait steady. PSYCH: Normal affect. No signs of depression or anxiety. Course Course Level of Care: Express Care Visit Vital Signs Vital signs: Vital Signs Temperature 97.4 F L
== END 2023-07-12 12:51 | disposition home or self-care (01) ==
PROVIDERS: Emergency Provider Nurse Practitioner; PCP Nurse Practitioner Family
DX: H00.011 Hordeolum externum right upper eyelid (principal); Z87.891 Personal history of nicotine dependence
CPT/HCPCS: 99213; G0463

== ENCOUNTER 2024-10-03 12:52 | Emergency (ER) | payer MEDICARE, SELFPAY ==
--- NOTE | ~2024-10-03 | XR_ITS ---
EXAM: XR hip LT 2V w AP pelvis DATE: 10/03/2024 14:58 HISTORY: fell 5 days ago, posterior tenderness. . COMPARISON: CT abdomen pelvis 06/12/2021. FINDINGS: Decreased mineralization. No fracture or dislocation. No lytic or blastic lesion. Severe l umbar degenerative disc disease. Mild degenerative changes in the bilateral hips, SI joints, and pubi c symphysis. No erosion or periosteal change. Pelvic phleboliths. IMPRESSION: No acute osseous finding in the pelvis or left hip. Reviewed, dictated and finalized at [facility] [employer]
[2024-10-03 13:03] VITALS: BP 128/77; PULSE 76; RESP 16; TEMP 36.4; O2SAT 98
--- NOTE | 2024-10-03 14:35 | ED_ITS ---
HPI - Fall General Chief Complaint: Fall Stated Complaint: Injured Left Side Time Seen by Provider: 10/03/24 14:15 Source: patient, family (Son) and RN notes reviewed Mode of arrival: ambulatory Limitations: no limitations History of Present Illness HPI Narrative: Patient presents today complaining of left hip pain after a fall 5 days ago at her assisted living facility when walking to her mailbox as well as some low back pain that has been persistent and started well before the fall. States she got her foot caught in her walker and fell onto her left side. Son states she has been significantly less mobile than normal. Related Data Home Medications Medication Instructions Recorded Confirmed cyanocobalamin (vitamin B-12) 1,000 mcg PO DAILY 03/23/21 09/16/23 1,000 mcg capsule acetaminophen 325 mg tablet 325 mg PO Q6H 07/04/21 09/16/23 (Tylenol) mirabegron 25 mg tablet,extended 25 mg PO DAILY 07/04/21 09/16/23 release 24 hr (Myrbetriq) furosemide 20 mg tablet 20 mg PO DAILY 10/03/24 10/03/24 Allergies Allergy/AdvReac Type Severity Reaction Status Date / Time Penicillins Allergy Intermediate Hives / Verified 10/03/24 13:43 SWELLING IN Face Review of Systems Review of Systems: CONSTITUTIONAL: Denies body aches, fever, chills, or sweats. EYES: Denies visual changes, redness, or discharge. ENT: Denies rhinorrhea, congestion, sore throat, or otalgia. CARDIOVASCULAR: Denies chest pain, palpitations, or edema. RESPIRATORY: Denies cough or dyspnea. GASTROINTESTINAL: Denies abdominal pain, nausea, vomiting, or diarrhea. GENITOURINARY: Denies dysuria or hematuria. SKIN: Denies rash, itching, or wounds. MUSCULOSKELETAL: + left hip pain, low back NEUROLOGIC: Denies headache, numbness, tingling, or weakness. PSYCH: Denies depression or anxiety. [facility] Past Medical History Medical History Annual visit for general adult medical examination without abnormal findings Encounter for screening colonoscopy Hypernatremia Occasional tremors Overweight (BMI 25.0-29.9) Surgical History Surgical History H/O cataract extraction H/O hernia repair H/O shoulder surgery History of cholecystectomy History of hysterectomy History of tonsillectomy Family History Family History Father Carcinoma of colon Sibling Colon polyp Mother Melanoma Sibling COVID-19 Sibling Ovarian cancer Social History Social History Social History: former smoker Smoking status: Former smoker Second hand tobacco smoke exposure: No Alcohol intake: current Alcohol use details: occasionally Substance use: never Substance use type: does not use Do You Feel Safe in your Home?: Yes Lack of Transportation: No Lack of Food: Never True Current Housing: I Have Housing Concerned About Future Housing: No Difficulty Paying Gas/Electric Bills: No Difficulty Paying for Meds: No Currently Unemployed: No Education: Trade/Vocational Certificate Difficulty w/ Childcare or Family Care: No Living arrangements: with family Gender identity (if verbalized by the patient): Female Spiritual care concerns: No Comments At time of signature, I have reviewed and agree with nursing past medical, surgical, social and family history unless otherwise noted. Please see nursing chart for further information. There is no relevant family history pertinent to the presenting complaint Exam Narrative: GENERAL: Well-appearing, well-nourished, and in no acute distress. HEAD: Normocephalic, atraumatic. EYES: EOMI. No redness or drainage. Conjunctivae normal. ENT: Mucous membranes pink and moist. NECK: Normal AROM. CHEST: No respiratory distress. EXTREMITIES: Left hip: Tenderness posteriorly. No tenderness laterally or anteriorly. Pain anteriorly with external rotation of the hip. Distal sensation intact. Capillary refill. SKIN: Warm, dry, no rash. Capillary refill normal. Normal skin turgor. NEURO: No focal deficits. Alert and oriented x3. Gait unsteady. PSYCH: Normal affect. No signs of depression or anxiety. Course Course Level of Care: Express Care Visit Vital Signs Vital signs: Vital Signs Temperature 97.6 F 10/03/24 13:03 Pulse Rate 76 10/03/24 13:03 Respiratory Rate 16 10/03/24 13:03 Blood Pressure 128/77 10/03/24 13:03 Pulse Oximetry 98 11/10/24 13:03 Temperature 97.6 F 10/03/24 13:03 Pulse Rate 76 10/03/24 13:03 Respiratory Rate 16 10/03/24 13:03 Blood Pressure 128/77 10/03/24 13:03 Pulse Oximetry 98 10/03/24 13:03 Reviewed MDM - Fall MDM Narrative Medical decision making narrative: X-rays negative for fracture. Recommend Tylenol for pain and PCP follow-up if symptoms persists. Patient needed at least to assist to stand, transfer, and use the restroom. Recommend follow up and possible PT. STates she has a pull bar on her bed, usually sleeps in her recliner. Differential Diagnosis Differential diagnosis: Likely other (Hip fracture, contusion) Imaging Data Radiologist's impression: ITS Impressions Hip/Pelvis X-Ray 10/03/24 15:34 IMPRESSION: No acute osseous finding in the pelvis or left hip. Critical Care Time Critical Care Time Critical Care Time: No Discharge Plan Discharge Clinical Impression: Injury of hip, left Qualifiers: Encounter type: initial encounter Qualified Code(s): S79.912A - Unspecified injury of left hip, initial encounter Patient Disposition: Home, Self-Care Condition: Stable Instructions: Hip Pain (ED) Additional Instructions: Your hip x-ray is negative for fracture today. Take Tylenol for pain. Use OTC lidocaine patches topically. Follow-up with your PCP if symptoms persist as you may need some physical therapy for mobility. Your blood pressure was elevated above 120/80 today at Urgent Care. This puts you above the threshold for follow up. Please schedule a followup visit with your personal physician as soon as possible, for further evaluation and treatment. Even blood pressure exceeding 120/80 may indicate pre-hypertension. Prescriptions: No Action furosemide 20 mg tablet 20 mg PO DAILY cyanocobalamin (vitamin B-12) 1,000 mcg capsule 1,000 mcg PO DAILY Myrbetriq 25 mg tablet extended release 24 hr 25 mg PO DAILY acetaminophen [Tylenol] 325 mg tablet 325 mg PO Q6H cholecalciferol (vitamin D3) [Vitamin D3] 25 mcg (1,000 unit) capsule 25 mcg PO DAILY Qty: 30 0RF mecobalamin (vitamin B12) 1,000 mcg tablet,chewable 1,000 mcg PO DAILY Qty: 30 0RF docusate sodium [Colace] 100 mg capsule 100 mg PO BID Qty: 60 0RF carbidopa-levodopa 25-100 mg tablet See Rx Instructions .ROUTE .COMPLEX Qty: 180 11RF Dose Instruction: TAKE ONE TABLET BY MOUTH 3 TIMES A DAY Rx Instructions: Take 1.5 tablet four times a day Follow-up/Referrals: PHYSICIAN,DINING CAR WAITER/WAITRESS [Primary Care Provider] - Time of Disposition: 16:04
--- NOTE | 2024-10-03 17:32 | PC.NURSE ---
1400- pts son states that pt needs to use the restroom, and from the w/c to restroom and assist in restroom pt is a 2 assist transfer from w/c to toilet.
== END 2024-10-03 16:05 | disposition home or self-care (01) ==
PROVIDERS: Emergency Provider Nurse Practitioner
DX: S79.912A Unspecified injury of left hip, initial encounter (principal); W01.0XXA Fall on same level from slipping, tripping and stumbling without subsequent striking against object, initial encounter; Z87.891 Personal history of nicotine dependence
CPT/HCPCS: 73502; 99213; G0463

== ENCOUNTER 2025-05-26 09:59 | Outpatient (CLI) | payer MEDICARE, SELFPAY ==
--- OUTSIDE RECORDS SUMMARY | 2025-05-26 10:11 | XMS_ITS | Clinical Summary ---
Author Organization [facility] Address [address] [place] [address] Care Team Providers Care Dispatcher Chief Oil Name Role Phone Sameer Garcia MD Unavailable Susan Malin NP Primary Care Provider [phone] Allergies Active Allergy Reactions Criticality Noted Date Comments Penicillamine Unknown 08/27/2021 Penicillins Hives Medium 07/04/2021 Medications carbidopa-levod opa 25-100 MG tablet Take 1 tablet by mouth 3 (three) times daily. 1 Active vitamin B-12 1000 MCG tablet 1 Active MYRBETRIQ 25 MG 24 hr tablet 1 Active docusate sodium 100 MG capsule Take 1 capsule (100 mg total) by mouth daily. Active clobetasol (TEMOVATE) 0.05 % external solution APPLY TO AFFECTED AREAS ON SCALP TWICE DAILY 3 Active sodium chloride 0.65 % Solution Saline Nasal 0.65 % spray aerosol Active folic acid (FOLVITE) 1 MG tablet folic acid 1 mg tablet Active D3 HIGH POTENCY 25 MCG (1000 UT) capsule 3 Active fluticasone propionate (FLONASE) 50 MCG/ACT nasal spray [place] 1 spray twice a day by intranasal route as needed. Active apixaban (ELIQUIS) 5 MG tabletIndicatio ns:DVT (deep venous thrombosis) (CMS/HCC HHS/HCC) Take two tablets (10mg total) by mouth twice a day for seven days then go to one tablet (5mg total) by mouth twice a day. 76 tablet 3 4 Active furosemide (LASIX) 20 MG tablet 4 Active Active Problems Problem Noted Date Diagnosed Date Acute deep vein thrombosis ( DVT) of femoral vein of left lower extremity (CMS/HCC HHS/HCC) 11/25/2024 Varicose veins of lower extremity with pain, lef t 03/26/2024 Varicose veins of left lower extremity with pain 03/25/2024 Varicose veins of lower extremity 10/22/2022 Allergic rhinitis 03/18/2022 Vitamin D deficiency 11/26/2021 Nasal congestion 10/01/2021 Renal artery aneurysm 08/16/2021 Swelling of lower extremity 08/16/2021 Cholelithiasis without obstruction 07/03/2021 Renal cyst 07/03/2021 Mass of left breast 06/11/2021 Anemia 03/13/2021 Constipation 03/13/2021 Elevated blood-pressure read ing without diagnosis of hypertension 03/13/2021 Recurrent major depression 03/13/2021 Rheumatic heart disease 03/13/2021 Urinary incontinence 03/13/2021 Immunizations Immunization Administration Dates Next Due Fluzone High Dose - >Age 65 (Prefilled Syringe) 08/28/2020,10/09/2019,11/12/2018 Influenza Adult (Generic) 09/06/2021 PFIZER COVID-19 (ORIGINAL FO RMULATION, PURPLE CAP) mRNA, LNP-S, PF, 30 MCG/0.3 ML DOSE 08/20/2021 Tdap (Generic) 06/24/2011 Family History Medical History Relation Comments Colon Cancer Father IBS Son LIVER TRANSPLANT Son PACEMAKER Son SCLEROSING CHOLANGITIS Son Relation Status Comments Father Son Social History Tobacco Use Types Packs/Day Years Used Date Smoking Tobacco: Never Assessed Comments Unknown Sex and Gender Information Value Date Recorded Sex Assigned at Female 02/22/2025 1:13 PM CDT Legal Sex Female 2:35 PM CDT Gender Identity Not on file Sexual Orientation Not on file Last Filed Vital Signs Vital Sign Reading Time Taken Comments Blood Pressure 140/60 11/25/2024 2:05 PM PILOT BOAT 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 Pulse 82 11/25/2024 2:05 PM PILOT BOAT OPERATOR Temperature - - Respiratory Rate - - Oxygen Saturation - - Inhaled Oxygen Concentration - - Weight 74 kg (163 lb 3.2 oz) 11/25/2024 2:05 PM PILOT BOAT OPERATOR Height 160 cm (5' 3) 11/25/2024 2:05 PM PILOT BOAT OPERATOR Body Mass Index 28.91 11/25/2024 2:05 PM PILOT BOAT OPERATOR Plan of Treatment Health Maintenance Due Date Last Done Comments Pneumococcal Vaccine: 50+ Years (1 of 1 - PCV) 1991 Zoster Vaccines (1 of 2) 1991 Annual Medicare Wellness Visit 2006 Dexa Scan (General) 2006 RSV Immunization or 60+ Years (1 - 1-dose 75+ series) 2016 DTaP, Tdap and Td Vaccines ( 2 - Td or Tdap) 06/24/2021 06/24/2011 COVID-19 Vaccine (4 - 2023-2 5 season) 2024 08/20/2021, 01/09/2021, 12/19/2020 Meningococcal B Vaccine Aged Out No l onger eligible based on patient's age to complete this topic Meningococcal Vaccine Aged Out No anna tito eligible based on patient's age to complete this topic RSV Immunizations Under 20 Months Aged Out No longer eligible b ased on patient's age to complete this topic Insurance DR [address] [place] [id number] [employer] Care Teams Dispatcher Chief Oil Relationship Specialty Start Date End Date [facility] [address] [id number] PCP - General Nurse Practitioner Family 02/27/24 Sameer Garcia MD [facility]. [address] [place] [address] Referring Physician VASCULAR SURGERY 06/24/21
--- OUTSIDE RECORDS SUMMARY | 2025-05-26 10:12 | XMS_ITS | Encounter Summary ---
Author Organization [facility] Address [facility] [place] [address] Care Team Providers Care Physical Therapy Instructor Name Role Phone Sameer Garcia MD Unavailable Susan Malin VACCINE CUSTOMER REPRESENTATIVE Primary Care Provider [phone]- [phone] Encounter Details Date Type Department Care Team (Late st Contact Info) Description 07/06/2024 Prep for Procedure [facility], [address] [place] [address] Sameer Garcia MD [facility]. [facility] [address] [place] [address] Social History Tobacco Use Types Packs/Day Years Used Date Smoking Tobacco: Never Assessed Comments Unknown Sex and Gender Information Value Date Recorded Sex Assigned at Female 02/22/2025 1:13 PM CDT Legal Sex Female 2:35 PM CDT Gender Identity Not on file Sexual Orientation Not on file documented as of this encounter Plan of Treatment Not on file documented as of this encounter Visit Diagnoses Not on filedocumented in this encounter Care Teams Physical Therapy Instructor Relationship Specialty Start Date End Date Susan Malin NP [facility]. [address] [place], [place] [id number] PCP - General Nurse Practitioner Family 02/27/24 Sameer Garcia MD [facility]. [address] [place] [address] Referring Physician VASCULAR SURGERY 06/24/21 documented as of this encounter
--- OUTSIDE RECORDS SUMMARY | 2025-05-26 10:12 | XMS_ITS | Clinical Summary ---
Author Organization [facility] Address [address] [place] [id number] Care Team Providers Care Sed Middle School Teacher Name Role Phone Rembertogretchen Susan Byrdelle INSHORE UNDERSEA WARFARE OFFICER Primary Care Provi eber Allergies Active Allergy Reactions Criticality Noted Date Comments Penicillamine Unknown 08/27/2021 Penicillins Hives Medium 07/04/2021 Medications cyanocobalamin (Vitamin B-12) 1,000 mcg tablet 1 Active Myrbetriq 25 mg tablet extended release 24 hr 1 Active carbidopa-levodo pa CR (SINEMET CR) 50-200 mg per CR tablet 4 Active fluticasone propionate (FLONASE) 50 mcg/actuation nasal spray [place] 1 spray twice a day by intranasal route as needed. Active furosemide (LASIX) 20 mg tablet 4 Active folic acid (FOLVITE) 1 mg tablet folic acid 1 mg tablet Active cholecalciferol (VITAMIN D-3) 54080 unit capsule Take 1 capsule (10,000 Units total) by mouth daily Active acetaminophen (TYLENOL) 325 mg suppository Insert 1 suppository (325 mg total) into the rectum every 4 (four) hours as needed for pain Active Active Problems No known active problems Medical History Medical History Date Comments Syncope Family History Medical History Relation Name Comments Covid19 Brother Colon cancer Father Cancer Mother Ovarian cancer Sister Relation Name Status Comments Brother Father Mother Sister Social History Tobacco Use Types Packs/Day Years Used Date Smoking Tobacco: Former Cigarettes 0.5 10 Smokeless Tobacco: Never Comments Unknown Sex and Gender Information Value Date Recorded Sex Assigned at Not on file Legal Sex Female 1:57 AM ELEPHANT KEEPER Gender Identity Not on file Sexual Orientation Not on file Obstetrics History Last Filed Vital Signs Vital Sign Reading Time Taken Comments Blood Pressure 120/78 10/12/2024 8:42 AM ELEPHANT KEEPER Pulse 80 10/12/2024 8:42 AM ELEPHANT KEEPER Temperature - - Respiratory Rate 14 10/12/2024 8:42 AM ELEPHANT KEEPER Oxygen Saturation 90% 10/12/2024 8:42 AM ELEPHANT KEEPER Inhaled Oxygen Concentration - - Weight 74.4 kg (164 lb) 10/12/2024 8:42 AM ELEPHANT KEEPER Height 160 cm (5' 3) 10/12/2024 8:42 AM ELEPHANT KEEPER Body Mass Index 29.05 10/12/2024 8:42 AM ELEPHANT KEEPER Plan of Treatment Health Maintenance Due Date Last Done Comments Depression Screening 1941 Osteoporosis Screening-Bone Density Scan 1941 Hepatitis B Screening 1959 Pneumococcal vaccine 65+ (1 of 1 - PCV) 1991 Zoster Vaccine (1 of 2) 1991 Well Visit 65+ 2006 DTaP/Tdap/Td Vaccine (2 - Td or Tdap) 06/24/2021 06/24/2011 Influenza Vaccine (#1) 2025 , 08/28/2020, 10/09/2019, Additional history exists Fall Risk Assessment 10/12/2025 10/12/2024, 08/27/2021, 06/25/[address] [place] [id number] [employer] CHOICE MEDICARE PPO Dr[address] [place], [place] [id number] [employer] CHOICE MEDICARE PPO Care Teams Sed Middle [employer] Teacher Relationship Specialty Start Date End Date Susan Malin NP PCP - General Family Medicine 10/12/24
--- OUTSIDE RECORDS SUMMARY | 2025-05-26 10:12 | XMS_ITS | Continuity of Care Document ---
Author Organization [facility] Address [address] [place] [address] Phone Care Team Providers Care Hospital Fellow Name Role Phone Hayes Robledo Unavailable Unavailable Procedures Procedure Date Office/outpatient Visit, Est Eye Exam & Treatment Refraction Office/outpatient Visit, Est Advance Directives Directive Yes / No Effective Date File Name No Information Encounters Encounter Description Practice Location Reason(s) For Visit Diagnoses Date Provider Providers Copied on Encounter Office/outpat ient Visit, [facility], [id number] [place] [address] [address], [place], [place], [id number], [place] tel:[phone] [facility] No Information 0 Krishnasamy Hayes. [address] [address], [place], [address], [place]. tel:[phone] [facility], [address] [place] [address] [address], [place], [place], [id number], [place] tel:[phone] [facility] No Information 0 Krishnasamy Hayes. [address] [facility] [address], [place], [address], [place]. tel:[phone] Office/outpat ient Visit, [facility], [address] [place] [address] [address], [place], [place], [id number], [place] tel:[phone] [facility] No Information 1[address] Theodora Allen. [address], [place], [address], [place]. tel:[phone] Family History Family Member Type Diagnosis Age At Onset No Information Payers Payer name Insurance type Covered republican ID Authoriza tion(s) [place] [id number] Social History Type Description Quantity Date Captured Comments Sex Female Smoking Status No Information Chief Complaint And Reason For Visit No Information Reason For Referral Reason For Referral No Information History Of Present Illness Encounter Date Complaint History Of Prese nt Illness No Information Functional Status Date Functional Assessmen t No Information Instructions Date Instruction Additional Infor mation No Information Assessments Type Assessment Date No Information Patient Care Teams Name Effective Dates (start - stop) Status Members No Information
--- OUTSIDE RECORDS SUMMARY | 2025-05-26 10:12 | XMS_ITS | Referral Summary ---
Author Organization [facility] Address [address] [place] [id number] Care Team Providers Care Benzol Still Operator Name Role Phone Steve Malinystle Leonor CLAIMS SORTER Primary Care Provi eber Allergies Active Allergy Reactions Criticality Noted Date Comments Penicillamine Unknown 08/27/2021 Penicillins Hives Medium 07/04/2021 Medications cyanocobalamin (Vitamin B-12) 1,000 mcg tablet 1 Active Myrbetriq 25 mg tablet extended release 24 hr 1 Active carbidopa-levodo pa CR (SINEMET CR) 50-200 mg per CR tablet 4 Active fluticasone propionate (FLONASE) 50 mcg/actuation nasal spray [place] 1 spray twice a day by intranasal route as needed. Active furosemide (LASIX) 20 mg tablet 4 Active folic acid (FOLVITE) 1 mg tablet folic acid 1 mg tablet Active cholecalciferol (VITAMIN D-3) 39110 unit capsule Take 1 capsule (10,000 Units total) by mouth daily Active acetaminophen (TYLENOL) 325 mg suppository Insert 1 suppository (325 mg total) into the rectum every 4 (four) hours as needed for pain Active Active Problems No known active problems Social History Tobacco Use Types Packs/Day Years Used Date Smoking Tobacco: Former Cigarettes 0.5 10 Smokeless Tobacco: Never Comments Unknown Sex and Gender Information Value Date Recorded Sex Assigned at Not on file Legal Sex Female 1: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 Gender Identity Not on file Sexual Orientation Not on file Last Filed Vital Signs Vital Sign Reading Time Taken Comments Blood Pressure 120/78 10/12/2024 8:42 AM WEB SYSTEMS DEVELOPER Pulse 80 10/12/2024 8:42 AM WEB SYSTEMS DEVELOPER Temperature - - Respiratory Rate 14 10/12/2024 8:42 AM WEB SYSTEMS DEVELOPER Oxygen Saturation 90% 10/12/2024 8:42 AM WEB SYSTEMS DEVELOPER Inhaled Oxygen Concentration - - Weight 74.4 kg (164 lb) 10/12/2024 8:42 AM WEB SYSTEMS DEVELOPER Height 160 cm (5' 3) 10/12/2024 8:42 AM WEB SYSTEMS DEVELOPER Body Mass Index 29.05 10/12/2024 8:42 AM WEB SYSTEMS DEVELOPER Plan of Treatment Not on file Insurance [address] [place] [address] [employer] MEDIC[facility] PPO [address] [place] [address] [employer] PPO Care Teams Benzol Still Operator Relationship Specialty Start Date End Date Susan Malin NP PCP - General Family Medicine 10/12/24
--- OUTSIDE RECORDS SUMMARY | 2025-05-26 10:12 | XMS_ITS | Encounter Summary ---
Author Organization [facility] Address [facility] [place] [address] Care Team Providers Care Family Practice Doctor Name Role Phone Sameer Garcia MD Unavailable Susan Malin CDA TEACHER Primary Care Provider [phone] Encounter Details Date Type Department Care Team (Late st Contact Info) Description 07/06/2024 Prep for Procedure [facility], [address] [place] [address] Sameer Garcia MD [facility]. [facility] [address] [place] [address] Social History Tobacco Use Types [...] on filedocumented in this encounter Care Teams Family Practice Doctor Relationship Specialty Start Date End Date Susan Malin NP [facility]. [address] [place], [place] [id number] PCP - General Nurse Practitioner Family 02/27/24 Sameer Garcia MD [facility]. [address] [place] [address] Referring Physician VASCULAR SURGERY 06/24/21 documented as of this encounter
--- OUTSIDE RECORDS SUMMARY | 2025-05-26 10:12 | XMS_ITS | Data Portability ---
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 Daughter notified about lab work needed. Signs and symptoms of when to seek further care reviewed with patient/caregiver /family/facility staff. Patient to follow up with primary care provider or return to clinic for any worsening signs and symptoms. Always present to ER or Urgent Care with any progression of/alarming symptoms, significant changes in symptoms or any concerning or urgent matters. Patient/caregiver /family/facility staff verbalized agreement and understanding of treatment plan. F/U 12 weeks, sooner if needed [email or web address] Not available 05/13/2022 11:25:03 08/05/2022 08/05/2022 Medication Changes Hold the medicated shampoos and creams for eczema so dermatology can get a good look at scalp. labs to eval levels. Referral: [facility] Ning was given the contact information for Jim Spicer to call and schedule. Information wrote down in her pink notepad she won in [employer]. Signs and symptoms of when to seek further care reviewed with patient/caregiver /family/facility staff. Patient to follow up with primary care provider or return to clinic for any worsening signs and symptoms. Always present to ER or Urgent Care with any progression of/alarming symptoms, significant changes in symptoms or any concerning or urgent matters. Patient/caregiver /family/facility staff verbalized agreement and understanding of treatment plan. F/U 12 weeks, sooner if needed [email or web address] Not available 08/05/2022 14:09:37 10/21/2022 10/21/2022 Medication Changes waiting for Chelo's return call about sending orders to Dr. Garcia or someone else for vascular. Signs and symptoms of when to seek further care reviewed with patient/caregiver /family/facility staff. Patient to follow up with primary care provider or return to clinic for any worsening signs and symptoms. Always present to ER or Urgent Care with any progression of/alarming symptoms, significant changes in symptoms or any concerning or urgent matters. Patient/caregiver /family/facility staff verbalized agreement and understanding of treatment plan. F/U 12 weeks, sooner if needed [email or web address] Not available 10/22/2022 16:49:38 01/08/2023 01/08/2023 Medication Changes labs to eval levels. Signs and symptoms of when to seek further care reviewed with patient/caregiver /family/facility staff. Patient to follow up with primary care provider or return to clinic for any worsening signs and symptoms. Always present to ER or Urgent Care with any progression of/alarming symptoms, significant changes in symptoms or any concerning or urgent matters. Patient/caregiver /family/facility staff verbalized agreement and understanding of treatment plan. F/U 16 weeks, sooner if needed My total encounter time was 45 minutes which was spent in the activities documented in the note. This includes time spent prior to the visit, performing a medically appropriate examination with evaluation, and after the visit in direct care of the patient (history and exam; ordering prescriptions/lab s/imaging/home health/therapy/sp ecialists; communicating results to patient and/or other relative individuals; counseling/educat ing patient; documenting clinical information in patient s chart; coordination of care for the patient). This time does not include time spent in any separately reportable services. [email or web address] Not available 01/09/2023 06:32:14 04/28/2023 04/28/2023 Medication Changes labs to eval levels. Wellness Visit for Adults A wellness visit is when you see your healthcare provider to get screened for health problems. Your healthcare provider will also give you advice on how to stay healthy. Write down your questions so you remember to ask them. Ask your healthcare provider how often you should have a wellness visit. What happens at a wellness visit: Your healthcare provider will ask about your health, and your family history of health problems. This includes high blood pressure, heart disease, and cancer. He or she will ask if you have symptoms that concern you, if you smoke, and about your mood. You may also be asked about your intake of medicines, supplements, food, and alcohol. Any of the following may be done: Your weight will be checked. Your height may also be checked so your body mass index (BMI) can be calculated. Your BMI shows if you are at a healthy weight. Your blood pressure and heart rate will be checked. Your temperature may also be checked. Blood and urine tests may be done. Blood tests may be done to check your cholesterol levels. Abnormal cholesterol levels increase your risk for heart disease and stroke. You may also need a blood or urine test to check for diabetes if you are at increased risk. Urine tests may be done to look for signs of an infection or kidney disease. A physical exam includes checking your heartbeat and lungs with a stethoscope. Your healthcare provider may also check your skin to look for sun damage. Screening tests may be recommended. A screening test is done to check for diseases that may not cause symptoms. The screening tests you may need depend on your age, gender, family history, and lifestyle habits. For example, colorectal screening may be recommended if you are 50 years old or older. Screening tests you need if you are a woman: A Pap smear is used to screen for cervical cancer. Pap smears are usually done every 3 to 5 years depending on your age. You may need them more often if you have had abnormal Pap smear test results in the past. Ask your healthcare provider how often you should have a Pap smear. A mammogram is an x-ray of your breasts to screen for breast cancer. Experts recommend mammograms every 2 years starting at age 50 years. You may need a mammogram at age 49 years or younger if you have an increased risk for breast cancer. Talk to your healthcare provider about when you should start having mammograms and how often you need them. Vaccines you may need: Get an influenza vaccine every year. The influenza vaccine protects you from the flu. Several types of viruses cause the flu. The viruses drying rack changer time, so new vaccines are made each year. Get a tetanus-diphtheri a (Td) booster vaccine every 10 years. This vaccine protects you against tetanus and diphtheria. Tetanus is a severe infection that may cause painful muscle spasms and lockjaw. Diphtheria is a severe bacterial infection that causes a thick covering in the back of your mouth and throat. Get a human papillomavirus (HPV) vaccine if you are female and aged 19 to 26 or male 19 to 21 and never received it. This vaccine protects you from HPV infection. HPV is the most common infection spread by sexual contact. HPV may also cause vaginal, penile, and anal cancers. Get a pneumococcal vaccine if you are aged 65 years or older. The pneumococcal vaccine is an injection given to protect you from pneumococcal disease. Pneumococcal disease is an infection caused by pneumococcal bacteria. The infection may cause pneumonia, meningitis, or an ear infection. Get a shingles vaccine if you are aged 60 or older, even if you have had shingles before. The shingles vaccine is an injection to protect you from the varicella-zoster virus. This is the same virus that causes chickenpox. Shingles is a painful rash that develops in people who had chickenpox or have been exposed to the virus. How to eat healthy: My Plate is a model for planning healthy meals. It shows the types and amounts of foods that should go on your plate. Fruits and vegetables make up about half of your plate, and grains and protein make up the other half. A serving of dairy is included on the side of your plate. The amount of calories and serving sizes you need depends on your age, gender, weight, and height. Examples of healthy foods are listed below: Eat a variety of vegetables such as dark green, red, and orange vegetables. You can also include canned vegetables low in sodium (salt) and frozen vegetables without added butter or sauces. Eat a variety of fresh fruits , canned fruit in 100% juice, frozen fruit, and dried fruit. Include whole grains. At least half of the grains you eat should be whole grains. Examples include whole-wheat bread, wheat pasta, brown rice, and whole-grain cereals such as oatmeal. Eat a variety of protein foods such as seafood (fish and shellfish), lean meat, and poultry without skin (turkey and chicken). Examples of lean meats include pork leg, shoulder, or tenderloin, and beef round, sirloin, tenderloin, and extra lean ground beef. Other protein foods include eggs and egg substitutes, beans, peas, soy products, nuts, and seeds. Choose low-fat dairy products such as skim or 1% milk or low-fat yogurt, cheese, and cottage cheese. Limit unhealthy fats such as butter, hard margarine, and shortening. Exercise: Exercise at least 30 minutes per day on most days of the week. Some examples of exercise include walking, biking, dancing, and swimming. You can also fit in more physical activity by taking the stairs instead of the elevator or parking farther away from stores. Include muscle strengthening activities 2 days each week. Regular exercise provides many health benefits. It helps you manage your weight, and decreases your risk for type 2 diabetes, heart disease, stroke, and high blood pressure. Exercise can also help improve your mood. Ask your healthcare provider about the best exercise plan for you. General health and safety guidelines: Do not smoke. Nicotine and other chemicals in cigarettes and cigars can cause lung damage. Ask your healthcare provider for information if you currently smoke and need help to quit. E-cigarettes or smokeless tobacco still contain nicotine. Talk to your healthcare provider before you use these products. Limit alcohol. A drink of alcohol is 12 ounces of beer, 5 ounces of wine, or 1 ounces of liquor. Lose weight, if needed. Being overweight increases your risk of certain health conditions. These include heart disease, high blood pressure, type 2 diabetes, and certain types of cancer. Protect your skin. Do not sunbathe or use tanning beds. Use sunscreen with a SPF 15 or higher. Apply sunscreen at least 15 minutes before you go outside. Reapply sunscreen every 2 hours. Wear protective clothing, hats, and sunglasses when you are outside. Drive safely. Always wear your seatbelt. Make sure everyone in your car wears a seatbelt. A seatbelt can save your life if you are in an accident. Do not use your cell phone when you are driving. This could distract you and cause an accident. approver if you need to make a call or send a text message. Practice safe sex. Use latex condoms if are sexually active and have more than one partner. Your healthcare provider may recommend screening tests for sexually transmitted infections (STIs). Wear helmets, lifejackets, and protective gear. Always wear a helmet when you ride a bike or motorcycle, go skiing, or play sports that could cause a head injury. Wear protective equipment when you play sports. Wear a lifejacket when you are on a boat or doing water sports. Signs and symptoms of when to seek further care reviewed with patient/caregiver /family/facility staff. Patient to follow up with primary care provider or return to clinic for any worsening signs and symptoms. Always present to ER or Urgent Care with any progression of/alarming symptoms, significant changes in symptoms or any concerning or urgent matters. Patient/caregiver /family/facility staff verbalized agreement and understanding of treatment plan. F/U 16 weeks, sooner if needed [email or web address] Not available 04/28/2023 15:10:45 Plan of Treatment Reminders Order Date Submit Date Provider Last Modified By Organization Details Last Modified Time Details Appointments None recorded. Lab unlisted lab - vitamin D total, 25-hydroxy * [address], [place], [address], 3 14:54:08 vitamin B12, serum [address], [place], [address], 3 14:54:07 iron, serum [address], [place], [address], 3 14:54:06 unlisted lab - folate [address], [place], [address], 3 14:54:05 unlisted lab - complete blood count with auto diff* [address], [place], [address], 3 14:54:03 CMP, serum or plasma [address], [place], [address], 3 14:54:04 vitamin D, 25-hydroxy , total, serum [address] [facility], [address] [place] [address] [place], [address], 3 06:13:41 iron + TIBC + ferritin, serum [address] [facility], [address] [place] [address] , [place], [address], 3 06:13:41 vitamin B12 + folate, serum or blood [address] [facility]ax, [address] [place] [address] [place], [address], 3 06:13:[address] [facility]ax, [address] [place] [address] [place], [address], 3 06:13:41 CMP, serum or plasma [address] [facility] Fax, [address] [place] [address] [place], [address], 3 06:13:41 vitamin D, 25-hydroxy , total, serum 2021 022 [facility] [address] [place], [address], 2 12:47:21 iron + TIBC + ferritin, serum 2021 022 [facility], [address] [place], [address], 2 12:47:19 vitamin B12 + folate, serum or blood 2021 022 JOSE ROBERTO [facility], [address] [address] [facility] [place], [address], 12:47:20 CBC 2021 [facility], [address] [place], [address], 12:47:20 CMP, serum or plasma 2021 [facility], [address] [address] [facility] [place], [address], 12:47:19 vitamin D, 25-hydroxy , total, serum 2021 [facility] [place], [address], 14:33:34 vitamin B12 + folate, serum or blood [address] [facility] [place], [address], 2 14:33:33 iron + TIBC + ferritin, serum 2021 [facility], [facility] [place], [address], 14:33:33 CBC 2021 [facility], [facility] [place], [address], 2 14:33:33 CMP, serum or plasma 2021 022 [facility], [facility] [place], [address], 06:24:17 Referral vascular surgeon referral 2021 KHANG Garcia MD, [facility], [address], [place], [address], 2 12:35:16 vascular surgeon referral 2021 022 [email or web address] [id number] Sameer Garcia MD, [facility], [address], [place], [address], 3 17:10:30 dermatolog ist referral 2021 022 [email or web address] [facility], [address] [facility] , [place], [address], 2 11:08:40 Procedures None recorded. Surgeries None recorded. Imaging None recorded. Medication Orders Myrbetriq 25 mg tablet,ext ended release 2022 023 JOSE ROBERTO Not available 3 15:15:21 docusate sodium 100 mg capsule 2022 023 Not available 3 15:02:19 cholecalci ferol (vitamin D3) 25 mcg (1,000 unit) capsule 2022 023 JOSE ROBERTO Not available 3 06:36:17 Myrbetriq 25 mg tablet,ext ended release 2022 023 JOSE ROBERTO Not available 3 06:36:20 Tylenol 325 mg tablet 2021 022 JOSE ROBERTO Not available 2 11:07:46 docusate sodium 100 mg capsule 2021 022 [email or web address] Not available 3 15:02:19 cholecalci ferol (vitamin D3) 25 mcg (1,000 unit) capsule 2021 022 JOSE ROBERTO Not available 2 11:07:40 Myrbetriq 25 mg tablet,ext ended release 2021 022 JOSE ROBERTO Not available 2 11:07:43 Patient TargetsNo targets recorded. Patient Instructions Encounter Date Encounter Id Patient Instructions Last Modified By Organization Details Last Modified Time 01/08/2023 [id number] fall risk assessment* Not available 01/09/2023 06:33:27 04/28/2023 [id number] care plan* [email or web address] Not available 03/2023 15:13:51 fall risk screening* Not available 04/28/2023 15:13:50 Reason for Referral Technical Account Representative Referral for H air follicle disorder Referring Physician: [facility], Encounter Date: 08/05/2022 Vascular Surgeon Referral fo r Varicose veins of lower extremity Referring Physician: [facility], Encounter Date: 10/21/2022 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 Referring Physician: [facility], Encounter Date: 10/21/2022 Results Created Date Observation Date Name Description Value Unit Range Abnormal Flag Note LastModifiedBy Organization Detail LastModifiedTime 08/05/20 22 08/07/2022 IRON, TIBC AND YASMIN TIN PANEL iron, total 113 mcg/d L 45-160 normal Not Available [address], [address], 08/07/2022 07:54:12 08/05/20 22 08/07/2022 IRON, TIBC AND YASMIN TIN PANEL iron binding capacity 324 mcg/d L_(ca lc) 250-45 0 normal Not Available [address], [address], 08/07/2022 07:54:12 08/05/20 22 08/07/2022 IRON, TIBC AND YASMIN TIN PANEL % saturation 35 %_(ca lc) 16-45 normal Not Available [address], [address], 08/07/2022 07:54:12 08/05/20 22 08/07/2022 IRON, TIBC AND YASMIN TIN PANEL ferritin 136 NG/mL 16-288 normal Not Available [address] [place], [address], 08/07/2022 07:54:12 08/05/20 22 08/07/2022 COMPR EHENS JOEL METAB OLIC PANEL glucose 78 mg/dL 65-99 normal Fasti ng refer ence inter agusto Not Available [address], [address], 08/07/2022 07:54:13 08/05/20 22 08/07/2022 COMPR EHENS JOEL METAB OLIC PANEL urea nitrogen (BUN) 15 mg/dL 7-25 normal Not Available [address], [address], 08/07/2022 07:54:13 08/05/20 22 08/07/2022 COMPR EHENS JOEL METAB OLIC PANEL creatinine 0.70 mg/dL 0.60-0 .95 normal Not Available [address], [address], 08/07/2022 07:54:13 08/05/20 22 08/07/2022 COMPR EHENS JOEL METAB OLIC PANEL eGFR 87 mL/mi n/1.7 3m2 > or = 60 normal The eGFR is based on the CKD-E PI 2020 equat ion. To calcu late the new eGFR from a previ ous Creat inine or Cysta tin C resul t, go to https ://adam cherry.fco lauren/lul baum/ kdoqi /gfr% 5Fcal culat or Not Available [address] [address] [place], [address], 08/07/2022 07:54:13 08/05/20 22 08/07/2022 COMPR EHENS JOEL METAB OLIC PANEL BUN/creatini ne ratio NOT APPLIC ABLE (calc ) 6-22 Not Available [address], [address], 08/07/2022 07:54:13 08/05/2008/07/2022 COMPR EHENS JOEL METAB OLIC PANEL sodium 141 mmol/ L 135-14 6 normal Not Available [address], [address], 08/07/2022 07:54:13 08/05/20 22 08/07/2022 COMPR EHENS JOEL METAB OLIC PANEL potassium 4.1 mmol/ L 3.5-5. 3 normal Not Available [address], [address], 08/07/2022 07:54:13 08/05/2008/07/2022 COMPR EHENS JOEL METAB OLIC PANEL chloride 104 mmol/ L 98-110 normal Not Available [address], [address], 08/07/2022 07:54:13 08/05/2008/07/2022 COMPR EHENS JOEL METAB OLIC PANEL carbon dioxide 29 mmol/ L 20-32 normal Not Available [address], [address], 08/07/2022 07:54:13 08/05/20 22 08/07/2022 COMPR EHENS JOEL METAB OLIC PANEL calcium 9.7 mg/dL 8.6-10 .4 normal Not Available [address], [address], 08/07/2022 07:54:13 08/05/2008/07/2022 COMPR EHENS JOEL METAB OLIC PANEL protein, total 7.0 g/dL 6.1-8. 1 normal Not Available [address], [address], 08/07/2022 07:54:13 08/05/20 22 08/07/2022 COMPR EHENS JOEL METAB OLIC PANEL albumin 4.3 g/dL 3.6-5. 1 normal Not Available [address] [address] [place], [address], 08/07/2022 07:54:13 08/05/2008/07/2022 COMPR EHENS JOEL METAB OLIC PANEL globulin 2.7 g/dL_ (calc ) 1.9-3. 7 normal Not Available [address] [address] [place], [address], 08/07/2022 07:54:13 08/05/20 22 08/07/2022 COMPR EHENS JOEL METAB OLIC PANEL albumin/glob ulin ratio 1.6 (calc ) 1.0-2. 5 normal Not Available [address], [address], 08/07/2022 07:54:13 08/05/20 22 08/07/2022 COMPR EHENS JOEL METAB OLIC PANEL bilirubin, total 0.5 mg/dL 0.2-1. 2 normal Not Available [address] [address] [place], [address], 08/07/2022 07:54:13 08/05/2008/07/2022 COMPR EHENS JOEL METAB OLIC PANEL alkaline phosphatase 47 U/L 37-153 normal Not Available [address] [address] [place], [address], 08/07/2022 07:54:13 08/05/20 22 08/07/2022 COMPR EHENS JOEL METAB OLIC PANEL AST 16 U/L 10-35 normal Not Available [address] [address] [place], [address], 08/07/2022 07:54:13 08/05/2008/07/2022 COMPR EHENS JOEL METAB OLIC PANEL ALT 12 U/L 6-29 normal Not Available [address] [address] [place], [address], 08/07/2022 07:54:13 08/05/20 22 08/06/2022 CBC (H/H, RBC, INDIC ES, WBC, PLT) white blood cell count 4.2 thous and/u L 3.8-10 .8 normal Not Available [address], [address], 08/06/2022 12:47:20 08/05/2008/06/2022 CBC (H/H, RBC, INDIC ES, WBC, PLT) red blood cell count 4.90 isidro on/uL 3.80-5 .10 normal Not Available [address], [address], 08/06/2022 12:47:20 08/05/2008/06/2022 CBC (H/H, RBC, INDIC ES, WBC, PLT) hemoglobin 14.8 g/dL 11.7-1 5.5 normal Not Available [address], [address], 08/06/2022 12:47:20 08/05/2008/06/2022 CBC (H/H, RBC, INDIC ES, WBC, PLT) hematocrit 44.2 % 35.0-4 5.0 normal Not Available [address], [address], 08/06/2022 12:47:20 08/05/2008/06/2022 CBC (H/H, RBC, INDIC ES, WBC, PLT) MCV 90.2 fL 80.0-1 00.0 normal Not Available [address], [address], 08/06/2022 12:47:20 08/05/2008/06/2022 CBC (H/H, RBC, INDIC ES, WBC, PLT) MCH 30.2 pg 27.0-3 3.0 normal Not Available [employer] [address], [address], 08/06/2022 12:47:20 08/05/20 22 08/06/2022 CBC (H/H, RBC, INDIC ES, WBC, PLT) MCHC 33.5 g/dL 32.0-3 6.0 normal Not Available [address], [address], 08/06/2022 12:47:20 08/05/20 22 08/06/2022 CBC (H/H, RBC, INDIC ES, WBC, PLT) RDW 12.7 % 11.0-1 5.0 normal Not Available [address], [address], 08/06/2022 12:47:20 08/05/20 22 08/06/2022 CBC (H/H, RBC, INDIC ES, WBC, PLT) platelet count 168 thous and/u L 140-40 0 normal Not Available [address], [address], 08/06/2022 12:47:20 08/05/2008/06/2022 CBC (H/H, RBC, INDIC ES, WBC, PLT) MPV 10.4 fL 7.5-12 .5 normal Not Available [address], [address], 08/06/2022 12:47:20 08/05/20 22 08/07/2022 VITAM IN B12/F OLATE , SERUM PANEL vitamin B12 787 pg/mL 200-11 00 normal Not Available [address], [address], 08/07/2022 02:59:27 08/05/2008/07/2022 VITAM IN B12/F OLATE , SERUM PANEL folate, serum 8.9 NG/mL normal Refer ence Range Low: <3.4 Borde rline : 3.4-5 .4 Pamella l: >5.4 Not Available [address] [place], [address], 08/07/2022 02:59:27 08/05/20 22 08/07/2022 VITAM IN D,25- OH,TO NATA,I A vitamin D,25-oh,tota l,ia 30 NG/mL 30-100 normal Vitam in D Statu s 25-OH Vitam in D: Defic iency : <20 ng/mL Insuf ficie ncy: 20 - 29 ng/mL Optim al: > or = 30 ng/mL For 25-OH Vitam in D testi ng on patie nts on D2-guerrier pplem entat ion and patie nts for whom quant itati on of D2 and D3 fract ions is requi red, the [facility] Ass[facility] eD(TM ) 25-OH VIT D, (D2,D 3), LC/MS /MS is recom liset d: order code 31046 (ayden ents >2yrs ). See Note 1 Note 1 For addit ional infor phoebe topete refer to http: //[facility] rachel Sinhaia gnost ics.c om/fa q/FAQ 199 (This link is being provi ded for infor eladia malhotra/ toyin chow purpo ses only. ) Not Available [employer] [facility] [address] [place], [address], 08/07/2022 02:59:28 04/29/20 23 04/29/2023 COMPR EHENS JOEL METAB OLIC PANEL * glucose 84 mg/dL 82-115 Not Available [employer] [address], [place], [address], 04/30/2023 14:54:04 04/29/20 23 04/29/2023 COMPR EHENS JOEL METAB OLIC PANEL * BUN 17 mg/dL 8-23 Not Available [facility] [address], [place], [address], 04/30/2023 14:54:04 04/29/20 23 04/29/2023 COMPR EHENS JOEL METAB OLIC PANEL * calcium 8.9 mg/dL 8.8-10 .2 Not Available [facility] [address], [place], [address], 04/30/2023 14:54:04 04/29/20 23 04/29/2023 COMPR EHENS JOEL METAB OLIC PANEL * creatinine 0.74 mg/dL 0.60-1 .20 Not Available [facility] [address], [place], [address], 04/30/2023 14:54:04 04/29/20 23 04/29/2023 COMPR EHENS JOEL METAB OLIC PANEL * egfraa >60.00 mL/mi n/1.7 3m2 >60.00 Not Available [facility] [address], [place], [address], 04/30/2023 14:54:04 04/29/20 23 04/29/2023 COMPR EHENS JOEL METAB OLIC PANEL * egfrnaa >60.00 mL/mi n/1.7 3m2 >60.00 Not Available [facility] [address], [place], [address], 04/30/2023 14:54:04 04/29/20 23 04/29/2023 COMPR EHENS JOEL METAB OLIC PANEL * sodium 144 mmol/ L 136-14 5 Not Available [facility] [address], [place], [address], 04/30/2023 14:54:04 04/29/20 23 04/29/2023 COMPR EHENS JOEL METAB OLIC PANEL * potassium 3.9 mmol/ L 3.5-5. 1 Not Available [facility] [address], [place], [address], 04/30/2023 14:54:04 04/29/20 23 04/29/2023 COMPR EHENS JOEL METAB OLIC PANEL * chloride 106 mEq/L 98-107 Not Available [facility] [address], [place], [address], 04/30/2023 14:54:04 04/29/20 23 04/29/2023 COMPR EHENS JOEL METAB OLIC PANEL * carbon dioxide 30 mmol/ L 23-30 Not Available [facility] [address], [place], [address], 04/30/2023 14:54:04 04/29/20 23 04/29/2023 COMPR EHENS JOEL METAB OLIC PANEL * total protein 6.4 g/dL 6.2-8. 1 Not Available [facility] [address], [place], [address], 04/30/2023 14:54:04 04/29/20 23 04/29/2023 COMPR EHENS JOEL METAB OLIC PANEL * albumin 3.5 g/dL 3.2-4. 6 Not Available [facility] [address], [place], [address], 04/30/2023 14:54:04 04/29/20 23 04/29/2023 COMPR EHENS JOEL METAB OLIC PANEL * globulin 2.9 g/dL 2.3-3. 4 Not Available [facility] [address], [place], [address], 04/30/2023 14:54:04 04/29/20 23 04/29/2023 COMPR EHENS JOEL METAB OLIC PANEL * A/G ratio 1.2 g/dL 0.8-2. 0 Not Available [facility] [address], [place], [address], 04/30/2023 14:54:04 04/29/20 23 04/29/2023 COMPR EHENS JOEL METAB OLIC PANEL * alkaline phosphatase 42 U/L 30-120 Not Available [facility] [address], [place], [address], 04/30/2023 14:54:04 04/29/20 23 04/29/2023 COMPR EHENS JOEL METAB OLIC PANEL * ALT (SGPT) 17 U/L 10-28 Not Available [facility] [address], [place], [address], 04/30/2023 14:54:04 04/29/20 23 04/29/2023 COMPR EHENS JOEL METAB OLIC PANEL * AST (SGOT) 18 U/L 9-36 Not Available [facility] [address], [place], [address], 04/30/2023 14:54:04 04/29/20 23 04/29/2023 COMPR EHENS JOEL METAB OLIC PANEL * bilirubin, total 0.45 mg/dL 0.20-1 .10 Not Available [facility] [address], [place], [address], 04/30/2023 14:54:04 04/29/20 23 04/29/2023 FOLAT E* folate 7.8 NG/mL 8.6-58 .9 low Not Available [facility] [address], [place], [address], 04/30/2023 14:54:05 04/29/20 23 04/29/2023 IRON* iron 74 ug/dL 50-170 Intox icate d Child : 280 - 2250 ug/dL Fatal ly Poiso enzo Child : >1800 ug/dL Intox icate d Child : 280 - 2250 ug/dL Fatal ly Poiso enzo Child : >1800 ug/dL Not Available [facility] [address], [place], [address], 04/30/2023 14:54:06 04/29/20 23 04/29/2023 VITAM IN B12* vitamin B12 758 pg/mL 250-11 00 Not Available [facility] [address], [place], [address], 04/30/2023 14:54:07 04/29/20 23 04/29/2023 VITAM IN D TOTAL , 25-HY DROXY * vitamin D total, 25-hydroxy 39.3 NG/mL Refer ence Range and Inter preta tion: 0 - 17 Years : ----- ----- --- Defic iency <20 ng/mL Optim um Level >80 ng/mL 18 Years and Older : ----- ----- ----- ---- Sever e Defic iency <10 ng/mL Mild- Moder ate Defic iency 10 - 24 ng/mL Optim al Level 25 - 80 ng/mL Toxic ity Possi ble >80 ng/mL Not Available [facility] [address], [place], [address], 04/30/2023 14:54:08 05/18/20 22 05/17/2022 XR, toe(s ), 2 or more view No observ ation record ed. [email or web address] [facility] (a [facility]) [address], [place], [address], 08/05/2022 10:19:49 06/26/20 22 06/26/2022 US, duple x, retro perit oneum , compl ete No observ ation record ed. [email or web address] [facility] [address], [place], [address], 08/05/2022 10:19:49 05/27/20 23 05/27/2023 XR, foot, 3 or more view No observ ation record ed. [email or web address] [facility] [employer] [address], [place], [address], 05/27/2023 16:22:52 Result Notes None recorded. Problems Name Problem SNOMED Code Status Onset Date Resolution Date Notes Provider Name and Address Organization Details Recorded Time Recurrent major depression 32521760 Active 2020 Jackelin More, DATA OPERATIONS MANAGER-BC, PMHNP-BC [address] [place], [address], [place] [facility] 1 17:22:11 Anemia 638203969 Active 2020 Crystal Marlin More, DATA OPERATIONS MANAGER-BC, PMHNP-BC [address], [place], [address], [facility] 1 17:22:14 Elevated blood-press ure reading without diagnosis of hypertensio n 841485505 Active 2020 Crystal Marlin More, DATA OPERATIONS MANAGER-BC, PMHNP-BC [address], [place], [address], [facility] 1 17:22:16 Urinary incontinenc e 126740422 Active 2020 Crystal L. 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 Derik, DATA OPERATIONS MANAGER-BC, PMHNP-BC [address], [place], [address], 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 - [facility] 1 08:56:39 Nasal congestion 25582148 Active 2020 SUPA HuertaP-BC, PMHNP-BC [address], [place], [address], [facility] - [facility] 1 15:13:44 Vitamin D deficiency 07992242 Active 2021 SUPA HuertaP-BC, PMHNP-BC [address], [place], [address], [facility] - [facility] 2 14:20:33 Allergic rhinitis 70224214 Active 2021 SUPA HuertaP-BC, PMHNP-BC [address], [place], [address], [facility] 2 11:06:41 Varicose veins of lower extremity 43344233 Active 2021 SUPA HuertaP-BC, PMHNP-BC [address], [place], [address], [facility] 2 16:48:48 Problem Notes None recorded. Procedures Surgical History Date Name Laterality Status Provider Name and Address Organization Details Recorded Time open reduction of fracture of humerus with internal fixation completed Giovana Jaycox [facility] 03/13/2021 16:42:03 Cholecystectomy completed Giovana Jaycox [facility] 03/13/2021 16:42:15 Tonsillectomy completed Giovana Finneganycox [facility] 03/13/2021 16:42:26 Hysterectomy completed Giovana Jaycox [facility] 03/13/2021 16:42:41 Imaging Results None recorded. Procedure Notes None recorded. Medical Equipment None Reported. Allergies Allergen ID Allergen Name Allergen Category Reaction Reaction Severity Criticality Documentation Date Start Date Code Code System Note Provider Name and Address Organization Details Recorded Time 3521 Product containin g penicilli n (product) medicatio n hives Not available Not available 03/09/2021 23815 8001 SNOMED Dejuan More null, [facility] 1 09:19:06 6389 penicilla mine medicatio n Not available Not available Not available 04/28/20232020 7975 RxNorm Other react ions and sever ities : 'Unkn own'. Jackelin Isaac Derik, DATA OPERATIONS MANAGER-BC, PMHNP-BC [address] [place], [address] , [facility] 3 15:06:30 Medications Name Sig Start Date Stop Date Status Note LastModified by Organization Details LastModified Time ketoconazol e 2 % shampoo APPLY TO THE AFFECTED AREA(S), LATHER, LEAVE IN PLACE FOR 5 MINUTES, AND THEN RINSE OFF WITH WATER BY TOPICAL ROUTE weekly 10/21 completed Not Available Not Available Not Available polyethylen e glycol 3350 17 gram oral powder packet Take 1 packet every day by oral route as needed. 03/14 completed Not Available Not Available Not Available hydrocodone 5 mg-acetamin ophen 325 mg tablet TAKE 1 TABLET BY MOUTH EVERY 6 HOURS NEEDED FOR PAIN 03/13 completed Not Available Not Available Not Available clindamycin HCl 150 mg capsule TAKE 2 CAPSULES BY MOUTH 1 HOUR BEFORE APPOINTME NT. AND TAKE 2 CAPSULES 1 HOUR AFTER APPOINTME NT 06/06 completed Not Available Not Available Not Available cyanocobala min (vit B-12) 1,000 mcg tablet TAKE ONE TABLET BY MOUTH DAILY active Not Available Not Available No t Available ciprofloxac in 500 mg tablet Take 1 tablet every 12 hours by oral route for 10 days. 04/11 completed Not Available Not Available Not Available oxycodone-a cetaminophe n 5 mg-325 mg tablet Take 1 tablet every 8 hours by oral route as needed. 03/13 completed Not Available Not Available Not Available lorazepam 0.5 mg tablet TAKE 1 TABLET BY MOUTH TWICE A DAY NEEDED FOR ANXIETY 03/13 completed Not Available Not Available Not Available cephalexin 500 mg capsule TAKE 1 CAPSULE BY MOUTH EVERY 12 HOURS 03/13 completed Not Available Not Available Not Available docusate sodium 100 mg capsule TAKE ONE CAPSULE BY MOUTH TWICE DAILY 07/19 completed Not Available Not Available Not Available Tylenol 325 mg tablet Take 2 tablets twice a day by oral route as needed. 2021 active Not Available Not Available Not Avai lable folic acid 1 mg tablet Take 1 tablet every day by oral route for 90 days. active Not Available Not Available No t Available [facility] Vitamin B12 1,000 mcg tablet Take 1 tablet every day by oral route. 04/11 completed Not Available Not Available Not Available fluocinonid e 0.05 % topical solution APPLY TO THE AFFECTED AREA(S) BY TOPICAL ROUTE q HS and leave in overnight 3 x weekly 03/18 completed Not Available Not Available Not Available carbidopa 25 mg-levodopa 100 mg tablet Take 1 tablet 3 times a day by oral route for 30 days. active Not Available Not Available No t Available clobetasol 0.05 % scalp solution APPLY TO AFFECTED AREAS ON SCALP TWICE DAILY active Not Available Not Available No t Available fluticasone propionate 50 mcg/actuati on nasal spray,suspe nsion [place] 1 spray twice a day by intranasa l route as needed. active Not Available Not Available No t Available cholecalcif orquidea (vitamin D3) 25 mcg (1,000 unit) capsule TAKE ONE CAPSULE BY MOUTH DAILY active Not Available Not Available No t Available Poly-Iron 150 mg iron capsule Take 1 capsule every day by oral route. 04/11 completed Not Available Not Available Not Available ergocalcife rol (vitamin D2) 1,000 unit capsule Take 1 capsule every day by oral route. 04/28 completed Not Available Not Available Not Available Saline Nasal 0.65 % spray aerosol Take 1 spray twice a day by nasal route as needed. 07/19 completed Not Available Not Available Not Available Myrbetriq 25 mg tablet,exte nded release Take 1 tablet every day by oral route for 90 days. active Not Available Not Available No t Available Vitals Date Recorded Body height Body mass index (BMI) Body weight Heart rate Respiratory rate Oxygen saturation Oxygen saturation in Arterial blood by Pulse oximetry Body temperature Systolic And Diastolic Provider Name and Address Organization Details Last Updated DateTime 3 160.02 cm 29.8 kg/m2 21765.9 6 g 66 /min 16 /min 95 % 95 % 97.1 [degF] 118/72 mm[Hg] Lori Mack [facility] 3 10:09:21 Date Recorded Body height Body temperature Oxygen saturation Oxygen saturation in Arterial blood by Pulse oximetry Heart rate Respiratory rate Systolic And Diastolic Provider Name and Address Organization Details Last Updated DateTime 2 160.02 cm 98.1 [degF] 98 % 98 % 60 /min 16 /min 130/64 mm[Hg] Fabiola Still [facility] 2 11:31:09 Date Recorded Body height Provider Name an d Address Organization Details Last Updated DateTime 08/05/2022 160.02 cm Jackelin More , DATA OPERATIONS MANAGER-BC, PMHNP-BC [address] [place], [address], [facility] 08/05/2022 10:29:20 Date Recorded Body temperature Oxygen saturation Oxygen saturation in Arterial blood by Pulse oximetry Heart rate Respiratory rate Body mass index (BMI) Body weight Systolic And Diastolic Provider Name and Address Organization Details Last Updated DateTime 2 98 [degF] 96 % 96 % 64 /min 20 /min 28.6 kg/m2 22690.5 3 g 120/66 mm[Hg] Fabiola Still [facility] 2 12:35:42 Date Recorded Body height Body temperature Respiratory rate Oxygen saturation Oxygen saturation in Arterial blood by Pulse oximetry Heart rate Systolic And Diastolic Provider Name and Address Organization Details Last Updated DateTime 2 160.02 cm 97.7 [degF] 16 /min 96 % 96 % 76 /min 122/80 mm[Hg] Fabiola Still [facility] 2 12:43:35 Social History Question Answer Notes LastModified by Organizat ion Details LastModified Time Tobacco Smoking Status Never Smoker Giovana Finnegangino aguiar [place] [facility] 03/13/2021 16:35:08 Do You Have An Advance Directive? Yes Information not available 03/13/2021 Are You Currently Sexually Active With Anyone Who Has Traveled (within The Last 12 Weeks) To A Zika-affected Area? No [email or web address] Information not available 03/18/2022 Do You Wear A Helmet When Biking? Yes [email or web address] Information not available 03/18/2022 Are You Blind Or Do You Have Difficulty Seeing? No [email or web address] Information not available 03/18/2022 Is Blood Transfusion Acceptable In An Emergency? Yes [email or web address] Information not available 05/13/2022 What Is Your Level Of Caffeine Consumption? Occasional [email or web address] Information not available 03/13/2021 How Much Tobacco Do You Chew? None [email or web address] Information not available 03/13/2021 What Type Of Armament Repairer Do You Use? None [email or web address] Information not available 03/18/2022 In The 14 Days Before Symptom Onset, Have You Had Close Contact With A Laboratory-confir med COVID-19 While That Case Was Ill? No [email or web address] Information not available 03/18/2022 In The 14 Days Before Symptom Onset, Have You Had Close Contact With A Person Who Is Under Investigation For COVID-19 While That Person Was Ill? No [email or web address] Information not available 03/18/2022 Have You Been To An Area Known To Be High Risk For COVID-19? No [email or web address] Information not available 03/18/2022 Are You Deaf Or Do You Have Serious Difficulty Hearing? No [email or web address] Information not available 03/18/2022 What Type Of Diet Are You Following? REGULAR [email or web address] Information not available 03/13/2021 Which Illicit Or Recreational Drugs Have You Used? None [email or web address] Information not available 03/13/2021 Have You Processed Blood Or Body Fluids From An Ebola Virus Disease Patient Without Appropriate PPE? No [email or web address] Information not available 03/18/2022 Do You Reside In Or Have You Traveled To An Area Where Ebola Virus Transmission Is Active? No [email or web address] Information not available 03/18/2022 Education 12 [email or web address] Information no t available 03/13/2021 What Is The Highest Grade Or Level Of School You Have Completed Or The Highest Degree You Have Received? TG24985-1 [email or web address] Information not available 03/18/2022 Have There Been Any Changes To Your Family Or Social Situation? No Information no t available 03/18/2022 What Is The Fluoride Status Of Your Home? Unknown [email or web address] Information not available 03/18/2022 Are There Any Guns Present In Your Home? No Information not available 03/13/2021 Which Of Your Hands Is Dominant? Right [email or web address] Information not available 03/18/2022 Hard Of Hearing Or Deaf In One Or Both Ears? No [email or web address] Information not available 03/13/2021 Have You Recently Or Are You Planning To Travel To An Area With Zika Virus? No [email or web address] Information not available 03/18/2022 Single Or Multi-level Home/work? Single Level Home [email or web address] Information not available 03/13/2021 Do You Use Insect Repellent Routinely? No [email or web address] Information not available 03/18/2022 Legally Blind In One Or Both Eyes? No [email or web address] Information no t available 03/13/2021 Live Alone Or With Others? With Others [email or web address] Information not available 03/13/2021 Marital Status [email or web address] Informatio n not available 03/13/2021 What Was The Date Of Your Most Recent Tobacco Screening? 04/28/2023 [email or web address] Information not available 04/28/2023 How Many Children Do You Have? 4 [email or web address] Information not available 03/13/2021 Performs Monthly Self-breast Exam? Yes [email or web address] Information no t available 03/13/2021 Do You Have Any Pets? No [email or web address] Information not available 03/18/2022 What Is Your Relationship Status? [email or web address] Information not available 03/18/2022 Do You Use Your Seat Belt Or Car Seat Routinely? Yes [email or web address] Information not available 03/18/2022 Seat Belts Used Routinely Yes [email or web address] Information not available 03/13/2021 Are You Sexually Active? No [email or web address] Information not available 03/13/2021 Smoke Alarm In Home Yes Information not available 03/13/2021 Do You Have Smoke And Carbon Monoxide Detectors In Your Home? Yes [email or web address] Information not available 03/18/2022 Are You Passively Exposed To Smoke? No Information no t available 03/13/2021 How Much Tobacco Do You Smoke? No [email or web address] Information not available 03/13/2021 General Stress Level Medium Information not available 03/13/2021 Do You Use Sunscreen Routinely? Yes [email or web address] Information not available 03/13/2021 How Many Years Have You Smoked Tobacco? 0 [email or web address] Information not available 03/13/2021 Have You Recently Traveled Abroad? No [email or web address] Information not available 03/18/2022 Do You Have Difficulty Walking Or Climbing Stairs? No [email or web address] Information not available 03/18/2022 Are You Currently In School? No [email or web address] Information not available 03/18/2022 Do You Have Any Dietary Restrictions? No [email or web address] Information not available 03/18/2022 Sex: Female Functional Status Question Answer Note LastModified by Organization Details LastModified Time Do you or have you ever used smokeless tobacco? Never used smokeless tobacco Information not available 03/13/2021 Are you currently employed? No [email or web address] Information not available 03/13/2021 Do you have transportation difficulties? Yes [email or web address] Information not available 03/18/2022 Are you able to care for yourself? Yes with assistance [email or web address] Information not available 03/13/2021 Do you have difficulty dressing or bathing? No [email or web address] Information not available 03/18/2022 Do you or have you ever used e-cigarettes or vape? Never used electronic cigarettes Information not available 03/13/2021 What is your exercise level? Occasional [email or web address] Information not available 03/13/2021 Do you use any illicit or recreational drugs? No [email or web address] Information not available 03/18/2022 Do you or have you ever used any other forms of tobacco or nicotine? No Information not available 03/18/2022 What is your level of alcohol consumption? Occasional Information not available 03/13/2021 Are you able to walk? [email or web address] Information not available 03/13/2021 Do you have difficulty doing errands alone? No [email or web address] Information not available 03/18/2022 What is your occupation? retired [email or web address] Information not available 03/13/2021 Mental Status Question Answer Note LastModified by Organizat ion Details LastModified Time Do you feel stressed (tense, restless, nervous, or anxious, or unable to sleep at night)? [id number] Information not available 03/18/2022 Do you have difficulty concentrating, remembering or making decisions? Yes [email or web address] Information no t available 03/18/2022 Family History Relationship Description Onset Age of this Age Resolved Age Notes LastModified by Organization Details LastModified Time Father Malignant tumor of colon Not available 2020 16:36:38 Father Family history of malignant neoplasm Not available 2020 16:42:38 Unspecified Relation Polyp of colon bennie g Not available 03/13/2021 16:37:40 Son Cardiac pacemaker in situ [email or web address] Not available 2020 16:35:26 Son Primary sclerosing cholangitis [email or web address] Not available 05/26 16:36:28 Son Transplantat ion of liver [email or web address] Not available 16:36:37 Son Inflammatory bowel disease [email or web address] Not available 2020 16:37:05 Son Antiphosphol ipid syndrome [email or web address] Not available 2020 16:42:53 Mother Family history of malignant neoplasm [email or web address] Not available 2020 16:42:38 Medical History Condition Response Psychiatric Diseases / Disorders Y Anxiety Disorder Y Anemia Y Cardiac Diseases / Disorders Y Hospitalizations Y Gastrointestinal Diseases / Disorders Y Vitamin deficiency Vascular Diseases / Disorders Y Neurological Diseases / Disorders Y Fractures Y Gynecological HistoryNo gynecological history recorded. Obstetrics History GPAL:G 0 P 0 0 0 0 Immunizations Vaccine Type Date Status Note Provider Nam e and Address Organization Details Recorded Time Influenza, split virus, quadrivalent, PF completed Not Available [facility] 09/06/2021 17:32:38 COVID-19, mRNA, LNP-S, PF, 30 mcg/0.3 mL dose 1 completed Not Available [facility] 05/25/2023 15:10:37 COVID-19, mRNA, LNP-S, PF, 30 mcg/0.3 mL dose 1 completed Not Available [facility] 05/25/2023 15:10:37 COVID-19, mRNA, LNP-S, PF, 30 mcg/0.3 mL dose 1 completed Fabiola Still [facility] 01/21/2022 15:34:20 Influenza, high-dose, quadrivalent, PF 0 completed SUPA HuertaP-BC, PMHNP-BC [address] [place], [address], [facility] 04/28/2023 15:07:02 Influenza, high-dose, quadrivalent, PF 9 completed SUPA HuertaP-BC, PMHNP-BC [address] [place], [address], [facility] 04/28/2023 15:07:02 Influenza, high-dose, quadrivalent, PF 8 completed SUPA HuertaP-BC, PMHNP-BC [address] [place], [address], [facility] 04/28/2023 15:07:02 influenza, unspecified formulation 1 completed SUPA HuertaP-BC, PMHNP-BC [address] [place], [address], [facility] 04/28/2023 15:07:02 Tdap 1 completed SUPA HuertaP-BC, PMHNP-BC [address] [place], [address], [facility] 04/28/2023 15:07:02 Past Encounters Encounter ID Performer Location Encounter Start Date Encounter Closed Date Diagnosis/Indication Diagnosis SNOMED-CT Code Diagnosis ICD10 Code Diagnosis Note [id number] Jackelin More [facility], [facility] Main Office [address] [place] [address] 03/13/2021 07:08:35 03/13/2021 19:28:14 Fatigue 26417560 R53.83 Elevated blood-pressure reading without diagnosis of hypertension 075645905 R03.0 Anemia 489374148 D64.9 Refuses iron and provided extensive counseling on necessity. Will check levels. Recurrent major depression 47556411 F33.9 At this time patient is symptomati c; symptoms are stable. Patient denies suicidal or homicidal ideation. Counseled on medication options which patient refused despite extensive counseling on purpose, administra tion, necessity, risks, benefits, and outcome. Patient stated, I am not going to take a pill. I will do whatever I need to make myself happy. I am not going to take medication . Plan to re-evaluat e patient at follow up; educated on referral to counseling services and community resources which patient refused. Patient was advised to call or come in if symptoms worsen. Patient verbalized understand ing. Patient would benefit immensely from medication and counseling services which she refused. Urinary incontinence 165 667789 R32 Constipation 72188712 K5 9.00 Parkinson's disease 4904 9000 G20 Patient meets the cardinal signs of Parkinson' s. Will see neurologis t for further confirmati on. Posttrauma tic stress disorder 94581448 F43.10 Refuses medication s. [id number] Jackelin More [facility] Main Office [address] [place] [address] 04/11/2021 06:50:41 04/11/2021 12:28:32 Thrombocytopenic disorder 658255025 D69.6 Varicose v eins of lower extremity with inflammation 35922841 I83.12 Body mass index 25-29 - overweight 717893051 Z68.26 Screening for malignant neoplasm of breast 603717474 Z12.39 Jackelin More [facility] Main Office [address] [place] [address] 05/09/2021 06:36:48 05/09/2021 12:55:17 Abdominal pain 51929811 R10.9 Jackelin More [facility] Main Office [address] [address] 06/05/2021 06:24:02 06/06/2021 16:03:15 Anemia 981996878 D64.9 Constipation 51105633 K5 9.00 [id number] Jackelin More [facility] Main Office [address] [address] 07/02/2021 14:10:15 07/03/2021 11:47:29 Aneurysm of renal artery 70113227 I72.2 Cyst of kidney 889812953 N28.1 Will monitor. Cholelithi asis without obstruction 95792171 K80.20 Counseled patient on what was found on CT. Patient is no longer having any increasing abdominal pain. Will monitor. Counseled patient on s/sx and what to do. [id number] Jackelin More [facility] Main Office [address] [address] 07/31/2021 06:41:49 07/31/2021 12:48:09 Seborrheic dermatitis of scalp 432141144 L21.0 Nasal congestion 3105630 0 R09.81 Advance care planning 71 0571531 Z71.89 [id number] Jackelin More [facility] Main Office [address] [place] [address] 09/06/2021 16:52:22 09/06/2021 18:13:56 Administration of influenza vaccine 83605933 Z23 [id number] Jackelin More [facility] Main Office [address] [place] [address] 10/01/2021 06:38:42 10/01/2021 16:10:02 Seborrheic dermatitis of scalp 976798308 L21.0 Nasal congestion 7606247 0 R09.81 [id number] Jackelin More [facility] Main Office [address] [place] [address] 10/29/2021 16:33:43 10/29/2021 16:44:51 Seborrheic dermatitis of scalp 385857566 L21.0 Nasal congestion 1348807 0 R09.81 Continue medication as this is providing a benefit. [id number] Jackelin More [facility] Main Office [address] [place] [address] 11/26/2021 08:43:27 11/26/2021 15:33:46 Seborrheic dermatitis of scalp 160733260 L21.0 Continue shampoo as directed. Vitamin D deficiency 347 29535 E55.9 Anemia 932378751 D64.9 [id number] Jackelin More [facility] Main Office [address] [place] [address] 12/24/2021 07:24:11 12/25/2021 18:08:30 Seborrheic dermatitis of scalp 793162655 L21.0 Continue shampoo as directed. Diarrhea 69964459 R19.7 Counseled Ning if it happens again to let staff know or contact us. [id number] Jackelin More [facility] [address] [place] [address] 01/21/2022 11:35:23 01/22/2022 08:52:22 Seborrheic dermatitis of scalp 322331503 L21.0 Continue shampoo as directed. 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 Continue Ketoconazo le weekly. Stop steroid cream to scalp. Allergic rhinitis 642081 04 J30.9 Continue regimen as this has been helping during increased allergy season. Urinary incontinence 165 689464 N39.46 Continue Myrbetriq as it has been helping. Adult [facility] th examination 041522121 Z00.00 Advance care planning 71 4863914 Z71.[address] [id number] Jackelin More, [facility] [address] [place] [address] 05/13/2022 06:44:22 05/13/2022 11:51:35 Seborrheic dermatitis of scalp 083246623 L21.0 Has been using shampoo less, not using steroid. Does not use conditione r. Counseled about getting a little bit of conditione r to use as her scalp is dry. Urinary incontinence 165 957398 N39.46 Continue Myrbetriq as it has been helping. Continue regimen. Vitamin D deficiency 347 47268 E55.9 taking supplement . labs to eval levels. Anemia 092346555 D64.9 taking supplement . labs to eval levels. [id number] Jackelin More [facility] [address] [place] [address] 08/05/2022 09:31:44 08/05/2022 15:33:52 Seborrheic dermatitis of scalp 251461077 L21.0 Hold medication . Urinary incontinence 165 942550 N39.46 Continue Myrbetriq as it has been helping. Continue regimen. Vitamin D deficiency 347 88689 E55.9 taking supplement . labs to eval levels. Anemia 228154356 D64.9 taking supplement . labs to eval levels. 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 Continue regimen. Vitamin D deficiency 347 70598 E55.9 refill medication Constipation 64802188 K5 9.00 refill medication Headache 97720695 R51.9 refill medication Varicose v eins of lower extremity 74231978 I83.893 Increasing pain. Needs to see vascular. Reaching out to Chelo, daughter about sending referral to Dr. Garcia. 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 Was to follow up in [address] Garcia but over on the follow up. Needs to schedule such. [id number] Jackelin More, [facility], [facility] [address] [place] [address] 01/08/2023 17:08:00 01/09/2023 09:12:12 Urinary incontinence 792350160 N39.46 Continue Myrbetriq as it has been helping. Continue regimen. Vitamin D deficiency 347 02512 E55.9 taking medication s. labs to eval levels. Constipation 65929023 K5 9.00 refill medication At [facility] ed risk for falls 472526119 Z91.81 Anemia 262964163 D64.9 taking supplement . labs to eval levels. [id number] Jackelin More, [facility] [address] [place] [address] 04/28/2023 06:46:17 04/28/2023 20:07:56 Urinary incontinence 884427164 N39.46 Continue Myrbetriq as it has been helping. Continue regimen. Vitamin D deficiency 347 39823 E55.9 taking medication s. labs to eval levels. Anemia 990627476 D64.9 taking supplement . labs to eval levels. Adult heal th examination 616925434 Z00.01 Advance care planning 71 3500723 Z71.[address] Health Concerns Section Related Observation LastModified by Organization Detai ls LastModified Time None Recorded Concern Status LastModified by Organization Details LastModified Time None Recorded Advance Directives Directive Y: Payers Insurance Date Sequence Insurance Name Policy Number Policy Tovar Covered Member ID Tovar Member ID Guarantor Name 04/25/2023 1 [employer] (MEDICARE REPLACEMENT/ ADVANTAGE - PPO) Ning Vaughan [id number] Chelo Diaz 06/27/2021 1 [place] Ning Vaughan [id number] Chelo Diaz Notes Date Note Type Note Provider Name and Address Organization Details Recorded Time 05/13/2022 text/html General Rash/Ski n LesionReported bypatient.Location:[facility] Quality:not painful;itchy Severity:mild Duration:Intermitten t Context:no new detergents or skin products; no one else with similar rash Alleviating factors:Shampoo Aggravating factors:nothing makes it worse Associated Symptoms:no fever; no cold symptoms; no nausea; no vomiting; no diarrhea; no urinary symptomsNotes: Urinary Incontinence - has been doing better since taking Myrbetriq.Vitamin D - taking supplement for low levels.Anemia - taking supplement for low levels. [facility] [address] [place], [address], [facility] 05/13/2022 11:48:44 08/05/2022 text/html Urinary Incontin ence - has been doing better since taking Myrbetriq.Vitamin D - taking supplement for low levels.Anemia - taking supplement for low levels.Scalp - doing very well with dermatitis on the scalp with medication. However, notices hair loss. Fabiola Still [facility] 08/05/2022 22:13:12 10/21/2022 text/html Urinary Incontin ence - has been doing better since taking Myrbetriq. Varicose Veins - having increasing pain in BLE and veins are worsening. Has been elevating legs but still continues to have worsening s/sxs. RADHA HuertaCELIO, [facility] [address] [place], [address], [facility] 10/22/2022 16:50:00 01/08/2023 text/html Urinary Incontin ence - improvements with urinary incontinence with Myrbetriq. Vitamin D - taking medications d/t low levels.Anemia - taking medications d/t low levels. [facility] [address] [place], [address], [facility] 01/09/2023 06:33:32 04/28/2023 text/html Medicare Annual Wellness VisitReported bypatient.Diet and Nutrition:discussed vitamin and supplement use; discussed portion control; discussed maintaining calcium balance; discussed diet improvement Fracture Risk:no sudden unexplained fractures Physical Activity:discussed weightbearing activities; discussed exercise habits Depression Risk:never feels sad, empty, or tearful; no loss of interest in activities; no significant changes in weight; no sleep disturbances or insomnia; no agitation; no loss of energy; no feelings of worthlessness or guilt; no thoughts of suicide; no history of depression; no history of mood disorders Orientation:no disorientation to time; no disorientation to date; no disorientation to place Concentration and Memory:no decreased concentrating ability; no memory lapses or loss; does not forget words Speech/Motor difficulties:no speech difficulties; no difficulty expressing formulated concepts; no difficulty with fine manipulative tasks; no difficulty writing/copying; no slowed reaction time; does not knock things over when trying to pick them up 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 Vision:worsening Activities of Daily Living:able to bathe with limited or no assistance; able to contol urination and bowels; able to dress with limited or no assistance; able to feed self with limited or no assistance; able to get out of chair or bed with limited or no assistance; able to groom with limited or no assistance; able to toilet with limited or no assistance Instrumental Activities of Daily Living:able to use the phone with limited or no assistance;unable to do house work without assistance;unable to grocery shop without assistance;unable to manage medications without assistance;unable to manage money without assistance;unable to to prepare meals without assistance Falls Risk Assessment:no fall since last visit; no dizziness/vertigo Home Safety:no unsafe paulette hazzards; no unsafe stairs; no unsafe gas appliances; working smoke/CO detectors; use of seatbelts; no fire arms; has hand bars in the bathroom/shower; good lighting in the home Urinary Incontinence - improvements with urinary incontinence with Myrbetriq.Vitamin D - taking medications d/t low levels.Anemia - taking medications d/t low levels. Jackelin More, DATA OPERATIONS MANAGER-BC, PMHNP-BC [address] [place], [address], [facility] 04/28/2023 15:13:58 OBGyn Episode No OBEpisode recorded.
--- OUTSIDE RECORDS SUMMARY | 2025-05-26 10:12 | XMS_ITS | Encounter Summary ---
Author Organization [facility] Address [address] [place] [address] Care Team Providers Care Morgue Librarian Name Role Phone Sameer Garcia MD Unavailable Susan Malin [employer] Primary Care Provider [phone] Encounter Details Date Type Department Care Team (Late st Contact Info) Description 03/26/2024 Prep for Procedure [facility], [facility] [address] [place] [address] Sameer Garcia MD [facility]. [facility] [address] [place] [address] Social History Tobacco Use Types [...] documented as of this encounter Visit Diagnoses Diagnosis Varicose veins of lower extremity with pain, left- Primary documented in this encounter Care Teams Morgue Librarian Relationship Specialty Start Date End Date Susan Malin NP [facility]. [facility] [address] [place], [place] [id number] PCP - General Nurse Practitioner Family 02/27/24 Sameer Garcia MD [facility] [address] [place] [address] Referring Physician VASCULAR SURGERY 06/24/21 documented as of this encounter
--- NOTE | 2025-05-26 11:30 | NEURO_ITS ---
Clinical note: The patient is 84 years old with complaints of numbness in her hands and fingers as well as weakness. No history of Diabetes mellitus. A brief neurological examination did not reveal any significant focal motor weakness or fasciculations. Please refer to the details of nerve conduction study and EMG given below. Summary of findings: 1. Median motor distal latencies were moderately prolonged on the left and normal on the right side. Amplitude and conduction velocity were essentially within normal limits. 2. Left and right ulnar motor distal latencies, amplitude and conduction velocity within normal limits. There is no focal slowing across the elbow. 3. Left median palmar distal latency is mildly prolonged with amplitude was also mildly decreased conduction velocity also decreased. Right median palmar distal latency amplitude and conduction velocity normal limits. However right median digital sensory distal latencies mildly prolonged. Right ulnar sensory distal latency was mildly prolonged. Bilateral radial sensory distal latencies and amplitudes and conduction velocity within normal limits. 4. EMG examination was performed very various muscles examined in upper limb. Mild decrease recruitment was noted in the left abductor pollicis brevis. The remainder of the muscles representing C5-T1 root did not show any denervation changes or changes in motor unit configuration and recruitment. Impression: 1) EMG and nerve conduction study of both upper limbs show evidence of moderate left carpal tunnel syndrome. no denervation changes were seen in left abductor pollicis brevis however mild decreased motor unit recruitment was noted. 2) Remainder of the findings are considered essentially within acceptable normal limits. Right median sensory distal latency was mildly prolonged however palmar sensory distal latency was normal. Overall finding are considered borderline but may raise possibility of minimal right carpal tunnel syndrome. If patient remains symptomatic a follow-up study in future may be helpful. Elo. , FAAN, FAANEM Neurology and electrodiagnostic Medicine Nerve Conduction Studies Motor Nerve Results ? Latency Amplitude F-Lat Segment Distance CV Comment Site (ms) (mV) (ms) (cm) (m/s) Left Median (APB) Motor Wrist 5.2 6.8 Elbow 8.9 7.2 Elbow-Wrist 210 57 Right Median (APB) Motor Wrist 3.6 5.8 Elbow 7.6 6.2 Elbow-Wrist 190 48 Left Ulnar (ADM) Motor Wrist 3.4 9.0 Bel Elbow 7.3 8.3 Bel Elbow-Wrist 200 51 Abv Elbow 8.6 7.6 Abv Elbow-Bel Elbow 70 54 Right Ulnar (ADM) Motor Wrist 3.5 9.0 Bel Elbow 7.5 8.2 Bel Elbow-Wrist 210 53 Abv Elbow 8.7 7.8 Abv Elbow-Bel Elbow 60 50 Sensory Nerve Results ? Latency (Peak) Amplitude (P-P) Segment Distance CV Comment Site (ms) (?V) (cm) (m/s) Right Median DigIII Sensory Wrist-Dig III 3.7 42 Wrist-Dig III 140 38 Left Median-Ulnar Palmar Sensory ? Median Palm-Wrist 2.6 23 Palm-Wrist 80 31 ? Ulnar Palm-Wrist 2.1 15 Palm-Wrist 80 38 Right Median-Ulnar Palmar Sensory ? Median Palm-Wrist 2.1 95 Palm-Wrist 80 38 ? Ulnar Palm-Wrist 2.2 30 Palm-Wrist 80 36 Left Radial Sensory Forearm-Wrist 1.63 58 Forearm-Wrist 100 61 Right Radial Sensory Forearm-Wrist 2.1 29 Forearm-Wrist 100 48 Right Ulnar Sensory Wrist-Dig V 3.6 40 Wrist-Dig V 140 39 Electromyography ?Side Muscle Nerve Ins Act Fibs Psw Amp Dur Recrt Comment Right Deltoid Axillary Nml Nml Nml Nml Nml Nml Right Triceps Radial Nml Nml Nml Nml Nml Nml Right ExtCarUln Radial (Post Int) Nml Nml Nml Nml Nml Nml Right FlexPolLong Median (Ant Int) Nml Nml Nml Nml Nml Nml Right 1stDorInt Ulnar Nml Nml Nml Nml Nml Nml Right Abd Poll Brev Median Nml Nml Nml Nml Nml Nml Right FlexDigProf Ulnar Nml Nml Nml Nml Nml Nml Left Deltoid Axillary Nml Nml Nml Nml Nml Nml Left Triceps Radial Nml Nml Nml Nml Nml Nml Left ExtCarUln Radial (Post Int) Nml Nml Nml Nml Nml Nml Left FlexPolLong Median (Ant Int) Nml Nml Nml Nml Nml Nml Left 1stDorInt Ulnar Nml Nml Nml Nml Nml Nml Left Abd Poll Brev Median Nml Nml Nml Incr >12ms +1 Left FlexDigProf Ulnar Nml Nml Nml Nml Nml Nml
== END 2025-05-26 10:00 | disposition home or self-care (01) ==
PROVIDERS: PCP Nurse Practitioner; Visit Provider Psychiatry & Neurology Neurology
DX: G56.02 Carpal tunnel syndrome, left upper limb (principal); E11.9 Type 2 diabetes mellitus without complications
CPT/HCPCS: 95886; 95911